=== PATIENT | male | born 1945 | race Caucasian/White ===

== ENCOUNTER → 2018-01-24 07:32 | Outpatient (CLI) | payer MEDICARE, BC, SELFPAY ==
[2018-01-24 09:13] LABS: ALT 42 U/L (12-78); AST 31 U/L (15-37); Albumin 3.9 g/dL (3.4-5.0); Alkaline Phosphatase 71 U/L (46-116); Anion Gap 5.2 mmol/L (3-11); BUN 23 mg/dL (7-18); Bilirubin, Total 0.6 mg/dL (0.2-1.0); CO2 30.8 mmol/L (21.0-32.0); CREATININE 1.02 mg/dL (0.70-1.30); Calcium 8.8 mg/dL (8.5-10.1); Chloride 105 mmol/L (98-107); Cholesterol 94 mg/dL (50-200); Glucose 122 mg/dL (70-100); HDL Cholesterol 27 mg/dL (40-60); LDL CHOLESTEROL 46 mg/dL (<100); Potassium 3.9 mmol/L (3.5-5.1); Sodium 141 mmol/L (136-145); Total Protein 7.1 g/dL (6.4-8.2); Triglyceride 195 mg/dL (30-150)
== END ==
PROVIDERS: PCP Family Medicine; Visit Provider Family Medicine
DX: E78.5 Hyperlipidemia, unspecified (principal)
CPT/HCPCS: 36415; 80053; 80061; 83721

== ENCOUNTER 2018-04-27 08:17 | Outpatient (CLI) | payer MEDICARE, BC, SELFPAY ==
[2018-04-27 10:03] LABS: C-Reactive Protein < 0.05 mg/dL (0.0-0.3)
[2018-04-28 10:28] LABS: Lyme Ab w Rflx to Lyme Confirm Negative
[2018-04-28 13:35] LABS: Rheumatoid Factor 15 IU/mL (<12.5)
[2018-04-28 19:18] LABS: Anaplasma phagocytophilum Negative (Negative); B. miyamotoi PCR Negative (Negative); Babesia divergens/MO-1 Negative (Negative); Babesia duncani Negative (Negative); Babesia microti Negative (Negative); Ehrlichia chaffeensis Negative (Negative); Ehrlichia ewingii/canis Negative (Negative); Ehrlichia muris eauclairensis Negative (Negative)
== END 2018-04-27 08:37 ==
PROVIDERS: PCP Family Medicine; Visit Provider Family Medicine
DX: M13.0 Polyarthritis, unspecified (principal)
CPT/HCPCS: 36415; 86140; 86431; 86618; 87798

== ENCOUNTER 2018-09-23 10:12 | Outpatient (CLI) | payer MEDICARE, BC, SELFPAY | END 2018-09-23 10:32 | PROVIDERS: PCP Family Medicine; Visit Provider Urology | DX: N40.2 Nodular prostate without lower urinary tract symptoms (principal) | CPT/HCPCS: 36415; 84153 ==

== ENCOUNTER → 2020-08-02 08:59 | Outpatient (BNVA) | payer MEDICARE, BC, SELFPAY | PROVIDERS: PCP Family Medicine; Referring Provider Family Medicine; Visit Provider Physical Therapy Assistant | DX: Z12.11 Encounter for screening for malignant neoplasm of colon (principal); Z86.010 Personal history of colon polyps ==

== ENCOUNTER 2020-08-12 10:04 | Day surgery (SDC) | payer MEDICARE, BC, SELFPAY ==
[2020-08-12 10:12] VITALS: BP 154/94; PULSE 77; RESP 18; TEMP 36.2; O2SAT 98
--- NOTE | 2020-08-12 10:32 | COLE_ITS ---
Date of service: 08/12/20 Time of Service: 11:33 Colonoscopy Report Date of procedure: 08/12/20 Pre-op diagnosis general: Hx of polyps Post-op diagnosis procedure note: same Procedure: Colonoscopy with polypectomy Surgeon: Rachael Galindo Anesthesia proc note operative: other (general/ASA 2/João Chan, NITA) Estimated blood loss (mL): 3 Pathology: other (Transverse polyp x3, Descending polyp, sigmoid polyp ) Complications: None Disposition: same day Indications: The patient is here for Colonoscopy pre-op. His last screening was in 2014 and was remarkable for tubular adenomatous polyp. He has no family history of colon cancer. He has had some bowel habit changes to include increased flatus and cramping abdominal pain which improves following having a BM. -Discussed colonoscopy bowel prep as well as the procedure. Discussed possible complications of the procedure to include bleeding, pain, perforation, missed small lesion/polyp, sore throat, aspiration and adverse reaction to the medications. Questions were answered to patient?s satisfaction. No guarantees were implied or given. Findings: 5 small polyps Procedure Description: After informed consent was obtained the patient was taken to the procedure room and placed in a left decubitous position. Monitors were applied and a time out was done. The patients name, date of , procedure, allergies to medications and metal in their body was reviewed. The patient was then sedated. Once sedated and comfortable a rectal exam was done. External exam was normal. Internal exam revealed a normal sphincter tone and no palpable masses. The prostate felt smooth and slightly enlarged. The scope was then introduced and retro-flexed. No internal hemorrhoids, polyps or masses were identified on retro-flexion. The scope was then advanced to the cecum without difficulty. The ileocecal vlave and appendiceal orifice were identified. The prep was good. The scope was then slowly retracted over 27 minutes back into the rectum. Polyps were removed with cold forceps in the Transverse colon x3, Descending colon x1 and sigmoid colon x1. There was no dive rticulosis noted. The scope was removed and the patient was woken up and taken back to Same day surgery in stable condition. The patient tolerated the procedure well and there were no immediate comp lications. Follow up: The patient should follow up in 3-5 years unless they develop changes in bowel habits or other new gastrointestinal complaints.
--- NOTE | 2020-08-12 10:33 | W.PM.DSUDISC ---
Discharge Plan Disposition Patient Disposition: HOME Condition: Good Discharge Details Reason For Visit: Hx of polyps Attending Provider: Rachael Galindo Primary Care Provider: Vicente Lozano Home Meds and New Rx's Prescriptions: Continued meclizine 12.5 mg tablet 25 mg PO BID PRN (Reason: motion sickness) Qty: 20 RF: 3 nitroglycerin 0.4 mg tablet, sublingual 0.4 mg Sublingual PRN Qty: 25 RF: 11 aspirin 81 MG tablet,delayed release (DR/EC) 81 mg PO DAILY RF: 0 Centrum Silver 1 EACH tablet 1 ea PO DAILY RF: 0 fexofenadine [Viry Allergy] 60 MG tablet 60 mg PO DAILY Qty: 30 RF: 2 cholecalciferol (vitamin D3) 1,000 unit (25 mcg) tablet 1,000 unit PO DAILY PRNRF: 0 lisinopril 10 mg tablet 10 mg PO DAILY Qty: 90 RF: 3 metoprolol succinate 25 mg tablet extended release 24 hr 25 mg PO DAILY Qty: 90 RF: 3 rosuvastatin [Crestor] 10 mg tablet 10 mg PO DAILY Qty: 90 RF: 3 Discontinued polyethylene glycol 3350 17 gram/dose powder 238 g PO ONCE Qty: 238 RF: 0 bisacodyl [Dulcolax (bisacodyl)] 5 mg tablet,delayed release (DR/EC) 5 mg PO ONCE Qty: 4 RF: 0 Discharge Instructions Additional Instructions: Findings: 5 small polyps Follow up: 3-5 years Please call if you develop: fevers >101.5 Nausea or Vomiting Abdominal pain that is not transient DAY SURGERY UNIT POST ENDOSCOPY INSTRUCTIONS 1. Because there will be medication in your system for the next 24 hours, you may feel a little sleepy. Your coordination will be affected. Therefore: a. Do not drive or operate dangerous equipment for 24 hours. b. Do not drink alcohol beverages for 24 hours (not even beer). c. Plan to go home and rest for the day. 2. Generally there are no restrictions on your activity after a day or so has gone by, but you may feel a bit fatigued for a few days. 3 After you arrive home you may have a light meal and return to a normal diet as you can tolerate it without feeling sick to your stomach. 4. After surgery, you may feel pain or discomfort. This should be only transient, but if it persists please contact your doctor. 5. If there are any questions regarding the findings of your procedure, please feel free to contact your doctor. 6. If you are unable to contact your doctor with a problem, contact the hospital at [phone]. 7. Continue all your regular medications unless directed otherwise. I understand the above instructions and have no questions. Signature of Patient or Responsible Adult Escort Date/Time Name of Responsible Adult Escort Signature of Nurse Date/Time Activity:: Activity as Tolerated Diet:: As Tolerated Discharge Orders Discharge Orders: Discharge Order (Routine); Ordered 08/12/20 Ordered By: Rachael Galindo
[2020-08-12] MEDS: Lactated Ringers 1,000 ML 80 ML IV (10:52)
--- NOTE | 2020-08-12 11:52 | BOWEL_PTH ---
PATIENT: Dayton Mcclure LOC: [facility] U#:[id number] AGE/SX: 75/M ROOM: RE08/12/[address]: Rachael Galindo MD : 1945 BED: DIS: 08/12/2020 SPEC #: [id number] RECD: 08/12/20 16:57 STATUS: [place] REQ #: [id number] DOMINIQUE: 08/12/20 11:[address]: Rachael Galindo DEPT: Surgical Specimen RECD BY: Radha Sapp ENTERED: 08/12/20 16:58 SP TYPE: Bowel OTHR DR: Vicente Lozano DO Tissues: 1 - BIOPSY BOWEL 2 - BIOPSY BOWEL 3 - BIOPSY BOWEL Procedures: GROSS AND MICRO LEVEL 4 Comments: [id number]
[2020-08-12 12:47] VITALS: BP 118/80; PULSE 79; RESP 16; TEMP 36.1; O2SAT 94
== END 2020-08-12 13:10 | disposition home or self-care (01) ==
PROVIDERS: PCP Family Medicine; Visit Provider Surgery
PROC: 0DJD8ZZ Inspection of Lower Intestinal Tract, Via Natural or Artificial Opening Endoscopic (ICD-10-PCS; CPT 45378; principal; 2020-08-12 11:15)
DX: Z12.11 Encounter for screening for malignant neoplasm of colon (principal); Z86.010 Personal history of colon polyps; D12.3 Benign neoplasm of transverse colon; D12.4 Benign neoplasm of descending colon
CPT/HCPCS: 45380; 88305; J2001; J2704

== ENCOUNTER 2021-03-19 10:58 | Outpatient (REF) | payer MEDICARE, BC, SELFPAY ==
[2021-03-21 14:50] LABS: COVID-19 RT-PCR UVMMC Result Negative (Negative)
== END 2021-03-19 10:59 | disposition home or self-care (01) ==
LOC: LBN 10:58
PROVIDERS: PCP Family Medicine; Visit Provider Nurse Practitioner Family
DX: J02.9 Acute pharyngitis, unspecified (principal); Z20.822 Contact with and (suspected) exposure to COVID-19
CPT/HCPCS: U0003; 87070

== ENCOUNTER 2021-08-18 03:26 | Outpatient (CLI) | payer MEDICARE, BC, SELFPAY ==
[2021-08-18 08:58] LABS: ALT 36 U/L (16-63); AST 26 U/L (15-37); Albumin 4.1 g/dL (3.4-5.0); Alkaline Phosphatase 63 U/L (46-116); Anion Gap 5.2 mmol/L (3-11); BUN 22 mg/dL (7-18); Bilirubin, Total 0.8 mg/dL (0.2-1.0); CO2 30.8 mmol/L (21.0-32.0); CREATININE 0.9 mg/dL (0.70-1.30); Calcium 8.7 mg/dL (8.5-10.1); Calculated LDL 43 mg/dL (<100); Chloride 105 mmol/L (98-107); Cholesterol 99 mg/dL (<200); Glucose 100 mg/dL (74-106); HDL Cholesterol 34 mg/dL (40-60); Potassium 3.9 mmol/L (3.5-5.1); Sodium 141 mmol/L (136-145); Total Protein 7.1 g/dL (6.4-8.2); Triglyceride 110 mg/dL (<150)
[2021-08-19 10:29] LABS: Hepatitis C Ab w Rflx HCV PCR Negative (Negative)
[2021-08-19 10:49] LABS: HIV-1/2 Ag & Ab Screen Negative (Negative)
== END 2021-08-18 03:27 | disposition home or self-care (01) ==
LOC: LBO 03:26
PROVIDERS: PCP Family Medicine; Visit Provider Family Medicine
DX: E11.9 Type 2 diabetes mellitus without complications (principal); I25.10 Atherosclerotic heart disease of native coronary artery without angina pectoris; Z11.59 Encounter for screening for other viral diseases; Z11.4 Encounter for screening for human immunodeficiency virus [HIV]
CPT/HCPCS: 36415; 80053; 80061; 86803; 87389

== ENCOUNTER → 2022-01-22 10:03 | Outpatient (BNVA) | payer MEDICARE, BC, SELFPAY | PROVIDERS: PCP Family Medicine; Referring Provider Family Medicine; Visit Provider Nurse Practitioner Adult Health | DX: G56.02 Carpal tunnel syndrome, left upper limb (principal) | CPT/HCPCS: 95908; 99203; 99213 ==

== ENCOUNTER → 2022-03-23 07:56 | Outpatient (BNVA) | payer MEDICARE, BC, SELFPAY | PROVIDERS: PCP Family Medicine; Referring Provider Family Medicine; Visit Provider Student in an Organized Health Care Education/Training Program | DX: E11.9 Type 2 diabetes mellitus without complications (principal); G56.02 Carpal tunnel syndrome, left upper limb | CPT/HCPCS: 99213 ==

== ENCOUNTER 2022-05-13 10:39 | Day surgery (SDC) | payer MEDICARE, BC, SELFPAY ==
[2022-05-13 11:09] VITALS: BP 148/101; PULSE 77; RESP 16; TEMP 36.5; O2SAT 96
[2022-05-13] MEDS: Lactated Ringers 1,000 ML 80 ML IV (11:52)
--- NOTE | 2022-05-13 11:54 | W.PREOPHP ---
Assessment and Plan Assessment and plan (1) Carpal tunnel syndrome on left: Status: Acute Assessment and plan: Left ECTR Details of surgery were discussed with patient as well as risks and pertinent anatomy. All questions were answered. History of Present Illness History of Present Illness Chief Complaint: L hand pain/numbness Narrative: Dayton is a 76-year-old male who comes in today for a left ECTR. He has had left hand numbness and tingling is ongoing for over a year.? Patient reports intermittent numbness and tingling that affects his thumb, index, middle and ring finger.? Symptoms are aggravated most significantly at night, with driving as well as with holding his arm in one position such as when holding his phone.? Over the past several months patient has been wearing a nighttime splint which is helped significantly with nighttime symptoms. He also describes intermittent sharp wrist discomfort that is aggravated with forced motion such as when completing repeated work. Although nighttime splinting has helped, he continues to have symptoms, therefore Dr. Valdez offers an ECTR for the left wrist. He is anxious to proceed. Pertinent Surgical Information Per previous orthopaedic note: Dayton has a past history of DM with his last A1c was 02/26/2022 which was 5.7.? Patient also had cardiac stents placed many years ago and denies any recent chest pain or shortness of breath; patient is extremely active including hiking frequently for hunting without cardiac respiratory symptoms. Review of Systems Constitutional Constitutional: Denies fever(s) ENT Ears, Nose, Mouth, and Throat: Denies dizziness and Denies sore throat Cardiovascular Cardiovascular: Denies chest pain, Denies palpitations and Denies dyspnea Respiratory Respiratory: Denies cough and Denies dyspnea Gastrointestinal Gastrointestinal: Denies abdominal pain, Denies melena, Denies hematochezia, Denies diarrhea, Denies nausea and Denies vomiting Genitourinary Genitourinary: Denies hematuria and Denies dysuria Neurologic Neurologic: Denies dizziness Endocrine Endocrine: Denies palpitations PFSH All Active Problems Osteoarthritis (Chronic) Carpal tunnel syndrome on left (Acute) Spider veins (Acute) Serrated adenoma of colon (Acute ~07/2020) Tubulovillous adenoma (Acute ~07/2020) x3 Colon cancer screening (Acute) Benign positional vertigo (Acute) Right rotator cuff tendinitis (Acute) Shoulder arthritis (Acute) Diabetes mellitus type 2, diet-controlled (Acute) Anterior subluxation or dislocation of shoulder (Acute 06/11/13) Injury of Achilles tendon (Acute 09/14/14) Counseling on health promotion and disease prevention (Acute) Prediabetes (Chronic) Fasting blood sugars have remained borderline for a few years. No specific interventions needed at this time, other than counseling to avoid added sugar. Varicocele (Chronic) progress note date 04/01/17. Left, Asymptomatic Urinary hesitancy (Chronic) progress note date 04/01/17. Mild lower urinary tract symptoms likely related to BPH. Thrombocytopenia (Chronic 05/21/16) 116K in 2012; 117K 2015; ? due to Atorvastatin, persists despite change to Rosuvastatin Skin lesions (Acute 07/26/14) hyperkeratotic lower back: consider excision due to irritation with clothing 08/14/19 f/u with Dr Paul Seasonal and perennial allergic rhinitis (Acute 05/03/15) Renal cyst (Acute) progress note date 04/01/17. Large Left small parapelvic right asymptomatic Prostatic calculi (Acute 09/30/17) Nocturia (Acute 09/30/17) Other and unspecified hyperlipidemia (Acute 08/20/11) Erectile dysfunction (Acute) progress note date 04/01/17. Esophageal reflux (Chronic 08/20/11) Dysmetabolic syndrome X (Chronic 08/20/11) Chronic rhinitis (Chronic 01/02/13) Reminded that he has a prescription for fexofenadine. If he needs a refill, he will call. Coronary atherosclerosis of [place] coronary vessel (Acute 03/31/05) On aspirin and rosuvastatin and has excellent cholesterol control at present. Benign localized prostatic hyperplasia with lower urinary tract symptoms (LUTS) (Acute) progress note date 04/01/17. nocturia Benign hypertension (Chronic 05/31/04) Well controlled on metoprolol alone. Atherosclerosis of [place] coronary artery of [place] heart without angina pectoris (Acute 03/31/05) 2 DE STENTS 2004 ( LAD & diagnl); ETT 05/2011 borderline inf EKG no sx, ex 12:40 to 12.9 METs; ETT nl 01/2016 Actinic keratosis (Acute 08/20/11) Abnormal fasting glucose (Acute 02/23/17) HbA1c 6.0 01/2017 Surgical History Colonoscopy - IV Sedation (02/11/15) DR. GINO YUSUF H/O: vasectomy S/P angioplasty with stent (~2004) S/P excision of ganglion cyst right wrist Family History Mother , high bp at age 94. Essential hypertension Father , [place], pipe smoker at age 58. Myocardial infarction Brother Age: 81 Diabetes Essential hypertension History of heart artery stent Tachycardia ablation Social History Smoking/Tobacco Use Status: Former Tobacco Use Quit Date: 05/31/76 Pack-years: 20 Tobacco: How many years used: 15 Smoking risk assessment performed?: Yes Alcohol Intake: current Alcohol Intake frequency: a few times a month Drug use: Never Substance use type: does not use Caregiver/Support person: No Household members: spouse current occupation: [employer] 3day/wk Current gender identity: male What is your relationship status?: Panel score (0-1 are the most socially isolated patients): 1 Duration: 15-30 minutes/day Frequency: 3-4 times per week Seatbelt use: always Drive intox or ride w/intox corrugated fastener driver: No Water heater temp set <120 deg: Yes Working smoke detector in home: Yes Fire extinguisher in home: Yes Carbon monox detector in home: Yes Firearms in home: Yes Firearms unloaded and locked: Yes Do you feel safe at home: Yes Do you feel safe in your relationship?: Yes Meds Allergies and Home Medications Allergies Allergy/AdvReac Type Severity Reaction Status Date / Time No Known Allergies Allergy Verified 05/13/22 11:12 Home Medications Medication Instructions Recorded Confirmed Type aspirin 81 mg tablet,delayed 81 mg PO DAILY 09/20/12 05/13/22 History release oofpywpn-myq-pdgds acid 0.4 1 ea PO DAILY 11/26/14 05/13/22 History mg-lycopene 300 mcg-lutein 250 mcg tablet (Centrum Silver) cholecalciferol (vitamin D3) 25 1,000 unit PO DAILY PRN 03/28/19 05/13/22 History mcg (1,000 unit) tablet nitroglycerin 0.4 mg sublingual 0.4 mg sublingual PRN #25 tabs 05/10/20 05/13/22 Rx tablet naproxen sodium 220 mg tablet 220 mg PO PRN 04/30/21 05/13/22 History (Aleve) lisinopril 10 mg tablet 10 mg PO DAILY #90 tabs 05/20/21 05/13/22 Rx rosuvastatin 10 mg tablet (Crestor) 10 mg PO DAILY #90 tab-caps 05/20/21 05/13/22 Rx metoprolol succinate 25 mg 25 mg PO DAILY #90 tabs 11/18/21 05/13/22 Rx tablet,extended release 24 hr Exam Const General: cooperative and no acute distress Orientation: alert and awake [facility] Head: normocephalic and atraumatic Eyes Conjunctivae: conjunctivae normal Sclera: sclerae normal Resp Effort & Inspection: normal respiratory effort Auscultation: clear to auscultation bilaterally and no wheezes Cardio Rate: regular rate Rhythm: regular rhythm Heart Sounds: S1 normal, S2 normal and no murmurs Results Last Vital Signs Temp 97.7 F 05/13/22 11:09 Pulse 77 05/13/22 11:09 Resp 16 05/13/22 11:09 BP 148/101 H 05/13/22 11:09 Pulse Ox 96 05/13/22 11:09
--- NOTE | 2022-05-13 12:00 | W.ANESPRE ---
General Info Date of Service Date Performed: 05/13/22 Height: 6 ft Weight: 97.5 kg Body Mass Index (BMI): 29.1 Surgical Procedure: Operation Date: 05/13/22 13:55 Proposed Procedure Side Surgeon p Wrist ECTR Left Preston Valdez MD Meds Allergies and Home Medications Allergies Allergy/AdvReac Type Severity Reaction Status Date / Time No Known Allergies Allergy Verified 05/13/22 11:12 Home Medication Medication Instructions Recorded aspirin 81 mg tablet,delayed 81 mg PO DAILY 09/20/12 release mfczfvyk-axm-arhzx acid 0.4 1 ea PO DAILY 11/26/14 mg-lycopene 300 mcg-lutein 250 mcg tablet (Centrum Silver) cholecalciferol (vitamin D3) 25 1,000 unit PO DAILY PRN 03/28/19 mcg (1,000 unit) tablet nitroglycerin 0.4 mg sublingual 0.4 mg sublingual PRN #25 tabs 05/10/20 tablet lisinopril 10 mg tablet 10 mg PO DAILY #90 tabs 05/20/21 rosuvastatin 10 mg tablet (Crestor) 10 mg PO DAILY #90 tab-caps 05/20/21 metoprolol succinate 25 mg 25 mg PO DAILY #90 tabs 11/18/21 tablet,extended release 24 hr acetaminophen 500 mg tablet 1,000 mg PO TID #90 tabs 05/13/22 hydrocodone 5 mg-acetaminophen 325 1 tab PO Q6H PRN pain #6 tabs 05/13/22 mg tablet ibuprofen 600 mg tablet 600 mg PO TID PRN pain #90 tabs 05/13/22 Current Visit Medications: Current Medications Generic Name Dose Route Start Last Admin Trade Name Elaidoq PRN Reason Stop Dose Admin Ringer's Solution 1,000 mls @ 80 mls/hr 05/13/22 06:00 05/13/22 11:52 IV 06/11/22 23:59 80 mls/hr INFUSION MARI Administration Cefazolin Sodium/Dextrose 2 gm in 50 mls @ 100 mls/hr 05/13/22 06:00 Ancef Duplex IVPB 06/11/22 23:59 PREOP MARI IV Miscellaneous Supplies 1 each 05/13/22 06:00 Iv Access IV 06/11/22 23:59 DIRECTED MARI Sodium Chloride 0 ml 05/13/22 06:00 Normal Saline Flush 10 Ml Syr IV 06/11/22 23:59 PRN PRN Sodium Chloride 0 ml 05/13/22 06:00 Normal Saline 10 Ml Vial IJ 06/11/22 23:59 DIRECTED PRN Sterile Water 0 ml 05/13/22 06:00 Water,Injection,Sterile 10 Ml Vial IJ 06/11/22 23:59 DIRECTED PRN PFSH Active Problems Active Problems: Problem Status Onset Code Osteoarthritis M19.90 Carpal tunnel syndrome on left G56.02 Spider veins I78.1 Serrated adenoma of colon ~07/2020 D12.6 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 Colon cancer screening Z12.11 Benign positional vertigo H81.10 Right rotator cuff tendinitis M75.81 Shoulder arthritis M19.019 Diabetes mellitus type 2, diet-controlled E11.9 Anterior subluxation or dislocation of shoulder 06/11/13 Injury of Achilles tendon 09/14/14 S86.009A Counseling on health promotion and disease prevention Z71.89 Prediabetes R73.03 Varicocele I86.1 Urinary hesitancy R39.11 Thrombocytopenia 05/21/16 D69.6 Skin lesions 07/26/14 L98.9 Seasonal and perennial allergic rhinitis 05/03/15 J30.89, J30.2 Renal cyst N28.1 Prostatic calculi 09/30/17 N42.0 Nocturia 09/30/17 R35.1 Other and unspecified hyperlipidemia 08/20/11 E78.5 Erectile dysfunction N52.9 Esophageal reflux 08/20/11 K21.9 Dysmetabolic syndrome X 08/20/11 E88.81 Chronic rhinitis 01/02/13 J31.0 Coronary atherosclerosis of [place] coronary vessel 03/31/05 I25.10 Benign localized prostatic hyperplasia with lower urinary tract symptoms (LUTS) N40.1 Benign hypertension 05/31/04 I10 Atherosclerosis of [place] coronary artery of [place] heart without angina pectoris 03/31/05 I25.10 Actinic keratosis 08/20/11 L57.0 Abnormal fasting glucose 02/23/17 R73.01 Medical History Medical History Comments:: 05/13/22 - pt reports chrnic post nasal drip. 2 stents from angioplasty. Surgical History Surgical History Colonoscopy - IV Sedation (02/11/15) DR. GINO YUSUF H/O: vasectomy S/P angioplasty with stent (~2004) S/P excision of ganglion cyst right wrist Tobacco Smoking/Tobacco Use Status: Former Tobacco Use Alcohol Alcohol Intake: current Alcohol intake frequency: a few times a month Substance Use Substance use: Never Substance use type: does not use Vital Signs and Lab Results Vital Signs Most Recent Vital Signs in EMR: Most Recent Vital Signs Temp Pulse Resp BP Pulse Ox 36.5 C 77 16 148/101 H 96 05/13/22 11:09 05/13/22 11:09 05/13/22 11:09 05/13/22 11:09 05/13/22 11:09 Point of Care Results Point of Care Results: Finger Stick Blood Glucose 116 05/13/22 11:19 Lab Results Blood Type / Crossmatch: No Data to Display Complete Blood Count: No Data to Display Complete Metabolic Panel: No Data to Display Liver Function Panel: No Data to Display Coagulation Panel: No Data to Display Cardiac Panel: No Data to Display Arterial Blood Gas: No Data to Display Venous Blood Gas: No Data to Display Pancreas Panel: No Data to Display Thyroid Panel: No Data to Display Infectious Disease: No Data to Display Blood Cultures: No Data to Display Toxicology Panel: No Data to Display Imaging and Studies Imaging and Studies Study information below may be from another EMR and interpreted by another provider. Please see original notes in EMR for more complete details. EKG Summary: EKG PATIENT NAME: BECCA MORAN #: [id number] ORDERING PROVIDER: Vicente Lozano DOACCOUNT #: [id number] PRIMARY CARE PROVIDER:VICENTE LOZANO DO DATE/TIME OF SERVICE: 01/29/20 1050 : 1945PERFORMING LOCATION: [facility] APPROVED REPORT Exam: Resting ECG Patient Location: O HR:71 bpm ECG Measurements Heart Rate 71 AXIS DC 157 P 32 QRSd 106 QRS 43 QT 382 T18 QTc 415 Conclusion Sinus rhythm...normal P axis, V-rate 60- 99 Normal Electrocardiogram Stress Test Summary: STRESS TEST PATIENT NAME: BECCA MORAN #: [id number] ADMITTING PROVIDER: ROSE VIDAL, PREETHACCOUNT #: [id number] PRIMARY CARE PROVIDER:VICENTE AGUIAR M.D.DATE OF SERVICE: 01/30/16 : 1945 *[facility]* *[facility]* [address] [place] [address] Stress Electrocardiography Ganga protocol Date of study: 01/30/2016 (Report amended ) *PATIENT PRESENTATION* Height: 180.3cm ((71in) ) Blood Pressure: Weight: 104.5kg ((230lb) ) BSA: 2.32m^2 Ordering physician: Benjamin Mccann MD Impressions: Normal study after maximal exercise. Recommendations: Continue cardiac secondary prevention. Indication: I25.10. History: PATIENT PRESENTS TODAY FOR TREADMILL STRESS TEST AFTER VISITING HIS PCP DR. AGUIAR. PT REPORTS PREVIOUS CORONARY ARTERY DISEASE AND HAS NOT HAD A STRESS TEST IN MANY YEARS. PAST MEDICAL HISTORY: HYPERTENSION, MYALGIA, ATHEROSCLEROSIS, HX STENTS X2 IN 2004. FAMILY HX: FATHER AT AGE 58 OF DC. BROTHER HX STENT PLACEMENT. SMOKING STATUS: FORMER SMOKER EXERCISE ROUTINE: 30 MINS/ 5-7 DAYS A WEEK. Risk factors: Hypertension. Obesity. Dyslipidemia. Cholesterol: 100mg/dl. HDL: 29mg/dl. LDL: 47mg/dl. Triglycerides: 281mg/dl. Peripheral vascular disease. ALLERGIES: NKDA MEDICATIONS: RANITIDINE HCL 150 MG BID PRN, NITROGLYCERIN 0.4MG SL PRN, MULTIVITAMIN DAILY, MECLIZINE HCL 25MG BID, LISINOPRIL 10MG DAILY, FLUTICASONE NS PRN, FEXOFENADINE HCL BID PRN, VITAMIN D3 1,000 UNITS DAILY, ATORVASTATIN 20MG DAILY, ATENOLOL 50MG DAILY, ASPIRIN 81MG DAILY. Protocol: Ganga protocol. Baseline ECG: SINUS RHYTHM 89 BPM. SINUS RHYTHM Stress protocol: + +---+ + !Stage !HR !BP (mmHg) ! + +---+ + !Baseline supine !89 !146/90 (109) ! + +---+ + !Baseline standing !103!130/90 (103) ! + +---+ + !Stage I; 1.7mph, 10degrees; 3 min !122!140/100 (113)! + +---+ + !Stage II; 2.5mph, 12degrees; 3 min !121!156/90 (112) ! + +---+ + !Stage III; 3.4mph, 14degrees; 3 min!148!160/90 (113) ! + +---+ + !Peak stress !169! ! + +---+ + !Immediate post stress !160!170/80 (110) ! + +---+ + !Recovery; 1 min !111!210/80 (123) ! + +---+ + !Recovery; 3 min !94 !160/74 (103) ! + +---+ + !Recovery; 6 min !102!146/88 (107) ! + +---+ + !Recovery; 9 min !101!134/84 (101) ! + +---+ + * Stress results: [id number] The rate-pressure product for the peak heart rate and blood pressure was 47070zq Hg/min. Stress ECG: TREADMILL STRESS TEST ENDED DUE TO PATIENT FATIGUE AT 10 MINUTES AND 36 SECONDS. MAX HEART RATE: 169 PERCENT OF TARGET: 111% NORMAL BLOOD PRESSURE AND HEART RATE RESPONSE NOTED. 1 PVC NOTED AT 2 MINUTES 1 SECOND OF RECOVERY. APPROXIMATE METS ACHIEVED: 13.[address] DEPRESSION IN V4-V6 TOWARDS THE END OF STRESS TEST. FUNCTIONAL CAPACITY: ABOVE AVERAGE. Study data: Dr. Kirk supervised and was readily available during the procedure. This study was interpreted by [facility]. Study status: Routine. Consent: The risks, benefits, and alternatives to the procedure were explained to the patient and informed consent was obtained. Procedure: Initial setup. A baseline ECG was recorded. Surface ECG leads and manual cuff blood pressure measurements were monitored. Heart sounds: Normal. Lung sounds: Normal. Treadmill exercise testing was performed using the Ganga protocol. Study completion: The patient tolerated the procedure well and was discharged from the lab. Discharge: The patient left the laboratory in stable condition. Birthdate: Patient birthdate: 1945. Sex: Gender: male. Study date: Study date: 01/30/2016. Study time: 10:00 AM. Echocardiogram Summary: Patient Name: BECCA MORAN #: [id number]: DI Ordering Provider: Vicente Lozano DOAccount #: [id number]: REG CLI Primary Care Provider: Vicente Lozano of Exam: 09/03/17ex: M : 1945ge: 72 Exam(s) [id number] US:Echocardiogram Heart *[facility]* *[facility]* [address] [place] [address] Date of study: 09/03/2017 Transthoracic Echocardiography M-mode, complete 2D, complete spectral Doppler, and color Doppler *STUDY CONCLUSIONS* Summary: 1. Left ventricle: The cavity size was normal. Wall thickness was at the upper limits of normal. Systolic function was normal. The estimated ejection fraction was 55-60%. Wall motion was normal; there were no regional wall motion abnormalities. 2. Right ventricle: The cavity size was at the upper limits of normal. Systolic function was normal. 3. Mitral valve: Mildly thickened leaflets. Redundant mitral chordae tendinea prolapsing into LVOT. No significant LVOT obstruction/ gradient. 4. Aortic root: The aortic root was mildly dilated (40 mm). 5. Ascending aorta: The ascending aorta was mildly dilated (43 mm). 6. Inferior vena cava: The vessel was patent and normal in size. The respirophasic diameter changes were in the normal range (greater than or equal to 50%), consistent with normal central venous pressure. Carotid Artery Summary:: Patient Name: BECCA MORAN #: [id number]: DI Ordering Provider: Vicente Lozano DOAccount #: [id number]: REG CLI Primary Care Provider: Vicente Lozano of Exam: 09/01/17ex: M : 1945ge: 72 Exam(s) [id number] US:Carotid SYMPTOMS/DIAGNOSIS: PRESYNCOPE, R55 CAROTID ULTRASOUND: There is a mild amount of intimal thickening in the common carotid arteries bilaterally. A mild amount of calcific plaque is seen in the common carotid bulbs. The velocity measurements are within the normal range. There is no visible stenosis. The vertebral arteries show antegrade flow. IMPRESSION: No significant interval carotid artery stenosis. Mild amount of plaque. Anesthesia Assessment and Plan Anesthesia History Personal History: No History of Anesthesia Complications Family History: No Family History of Anesthesia Complications Exercise Tolerance Exercise Tolerance: Metabolic Equivalents>4 Pertinent Negatives Pertinent Negatives: No Symptoms of GERD, No Major Cardiovascular Symptoms or Complaints, No Major Pulmonary Symptoms or Complaints and No History of CVA/TIA Cardiac & Pulmonary Exam Cardiac Exam: Normal S1/S2 Heart Sounds Pulmonary Exam: Clear Bilateral Breath Sounds Implantable Cardiac Device Does patient have a Pacemaker or an ICD?: No Airway Exam Known Difficult Airway: No Mallampati Class: 2 Mouth Opening: Normal (> 3cm) Thyromental Distance: Greater than 3 cm Neck Range of Motion: Full ROM Neck Circumference: Normal Teeth Condition: Normal Dentition ASA Classification ASA Score: ASA 2 Emergency Case?: No NPO Status NPO Status: NPO Clears >2 hours, Solids >8 hours Anesthesia Plan Resuscitation Status: Full Code Anesthesia Technique: General Anesthesia Airway Planned: Natural Airway Monitors Used: Standard Monitors
--- NOTE | 2022-05-13 12:17 | W.PM.DSUDISC ---
Date of service: 05/13/22 Time of Service: 12:21 Discharge Plan Disposition Patient Disposition: Home Condition: Good Discharge Details Reason For Visit: L ECTR Attending Provider: Preston Valdez Primary Care Provider: Vicente Lozano Home Meds and New Rx's Prescriptions: New acetaminophen 500 mg tablet 1,000 mg PO TID Qty: 90 0RF hydrocodone-acetaminophen 5-325 mg tablet 1 tab PO Q6H PRN (Reason: pain) Qty: 6 0RF ibuprofen 600 mg tablet 600 mg PO TID PRN (Reason: pain) Qty: 90 0RF Continued nitroglycerin 0.4 mg tablet, sublingual 0.4 mg Sublingual PRN Qty: 25 11RF Rx Instructions: NEEDED FOR CHEST PRESSURE, MAY PREPAT 3 TIMES AND GO TO EMERGENCY IF NEEDED aspirin 81 MG tablet,delayed release (DR/EC) 81 mg PO DAILY Centrum Silver 1 EACH tablet 1 ea PO DAILY cholecalciferol (vitamin D3) 1,000 unit (25 mcg) tablet 1,000 unit PO DAILY PRN Label Comments: lisinopril 10 mg tablet 10 mg PO DAILY Qty: 90 3RF rosuvastatin [Crestor] 10 mg tablet 10 mg PO DAILY Qty: 90 3RF Rx Instructions: reduce risk of cardiovascular events following coronary disease metoprolol succinate 25 mg tablet extended release 24 hr 25 mg PO DAILY Qty: 90 3RF Discontinued naproxen sodium [Aleve] 220 mg tablet 220 mg PO PRN Discharge Instructions Stand Alone Forms: Courtney Benavides Tunnel Release Referrals: Preston Valdez MD [ [facility] STAFF PHYSICIAN] - Activity:: Activity as Tolerated Remove Dressings/Wound Care:: 48 hours Shower/Bathe:: 48 hours Diet:: As Tolerated Discharge Orders Discharge Orders: Discharge Order (Routine); Ordered 05/13/22 Ordered By: Benjamin Soto DS: Diagnosis Discharge Diagnosis (1) Carpal tunnel syndrome on left: Status: Acute
[2022-05-13 12:38] VITALS: BMI 29.1
[2022-05-13] MEDS: ceFAZolin 2 GM/50 ML BAG IVPB (12:47)
[2022-05-13] MEDS: Lidocaine 1% Pres-Free W/EPI 1/200,000 10 ML VIAL (13:01)
[2022-05-13 13:08] VITALS: BP 131/87; PULSE 84; TEMP 36; O2SAT 94
--- NOTE | 2022-05-13 13:18 | W.ANESPOSTOP ---
Postoperative Evaluation Date, Time and Location Date Performed: 05/13/22 Time Performed: 13:18 Patient Location: Day Surgery Unit Vital Signs Most Recent Imported Vital Signs: Most Recent Vital Signs Temp Pulse Resp BP Pulse Ox 36 C L 84 16 131/87 94 05/13/22 13:08 05/13/22 13:08 05/13/22 11:09 05/13/22 13:08 05/13/22 13:08 Pain Score Most Recent Pain Score: Most Recent Pain Score Pain Level 0 05/13/22 13:08 Assessment Mental Status: Awake (Alert & Oriented to Patient Baseline) Airway and Respiratory Function: Patent airway with normal (patient baseline) respiratory exam Cardiovascular Function: Hemodynamically Stable Hydration Status: Adequately Hydrated Nausea & Vomiting: No Nausea or Vomiting Pain: Pt. Denies Any Pain Peripheral Nerve Block: Patient did not receive a nerve block
[2022-05-13 13:38] VITALS: BP 124/85; PULSE 80; RESP 16; TEMP 36.1; O2SAT 95
--- NOTE | 2022-05-13 15:02 | W.PM.OP ---
Date of service: 05/13/22 Time of Service: 13:15 Operative Note Operative Note DATE OF PROCEDURE: 05/13/22 PRE-OP DIAGNOSIS: Left Carpal Tunnel Syndrome POST-OP DIAGNOSIS: same PROCEDURE: Left Endoscopic Carpal Tunnel Release SURGEON: Preston Valdez ANESTHESIA TYPE: General:No Airway Refer to Anesthesia Record ESTIMATED BLOOD LOSS: 0 PATHOLOGY: none sent TOURNIQUET TIME: 5 COMPLICATIONS: None Patient was transported to: same day Patient's condition: stable Indications: I have seen Dayton in clinic for symptoms of carpal tunnel syndrome. The numbness, tingling, and pain limited function. Clinical exam findings with nerve conduction tests confirmed the diagnosis of carpal tunnel syndrome. Nonoperative measures such as bracing, time, activity modifications had been tried but disability and pain persisted. I discussed carpal tunnel release with the patient. I reviewed the risks of the procedure to include, but not limited to, bleeding, infection, pain, stiffness, incomplete release, damage to nerves or vessels, persistent numbness, recurrence. Despite these risks, the patient elected to proceed. Findings: There was tightened carpal tunnel. This was dilated and released successfully with the endoscopic with increased space within the tunnel. The antebrachial fascia was released proximally freeing the median nerve at the wrist. Procedure Description: Dayton was greeted in the preoperative holding area where the correct side was identified and marked. The consent was reviewed with the patient and signed. The history and physical was updated. All questions were answered. He was taken back to the operating room. The patient was placed into the supine position on the operating room table with the left arm on an arm board. A nonsterile tourniquet was placed high onto the arm. All bony prominences were well padded. Prophylactic antibiotics in the form of Cefazolin were administered. The left arm was then prepped with Chloraprep and draped in a standard fashion with stockinette and extremity drape. A timeout to confirm correct identity, side and site, procedure, allergies, anesthesia, and medical concerns was performed. The surgical site was marked in the volar wrist creases in line with the radial border of the fourth ray. This area was anesthetized with approximately 6cc of 1% Lidocaine. The limb was then exsanguinated with an Esmarch. The skin was incised with a 15 blade, approximately 1cm. The skin only was cut and the deeper tissue was dissected bluntly with a tenotomy scissor, avoiding passing nerve and venous structures. The fascia was penetrated and opened bluntly. A two-prong skin hook was placed under this proximal fascial edge. A series of hamate finders were used to identify and dilate the carpal tunnel. Synovial elevator was used to free synovial attachments to the underside of the transverse carpal ligament. My thumb was kept in the palm to eva the distal extent of the carpal tunnel and correctly position the hand. The Microaire endoscope was inserted without difficulty and without resistance. Excellent visualization showed horizontally running fibers of the transverse carpal ligament (TCL). The distal extent of the TCL was visualized and the end of the scope palpated with the thumb. The blade was elevated and withdrawn from distal to proximal. The TCL was split into two flaps. The endoscope was reinserted to confirm complete release and any remnant ligament was incised. The scope was withdrawn and the proximal aspect of the carpal tunnel was grossly inspected and appeared release with the median nerve visible. The antebrachial fascia at the level of the wrist was then freed from the overlying skin and then the underlying median nerve with blunt dissection. This was transected longitudinally for about 3cm proximal to the wrist incision. The wound was then irrigated with easy flow of irrigant distally and proximally. The incision was closed with a single 4-0 Nylon suture. The wound was dressed with Xeroform, Gauze, Kerlix and Sameer. The tourniquet was deflated with the initial dressing and held with some pressure. Blood flow returned easily to all digits with capillary refill less than 2 seconds. The patient tolerated the procedure well and was returned to the Same Day Surgery area in a stable condition suffering no known complication.
== END 2022-05-13 14:07 | disposition home or self-care (01) ==
PROVIDERS: PCP Family Medicine; Visit Provider Student in an Organized Health Care Education/Training Program
PROC: 01N54ZZ Release Median Nerve, Percutaneous Endoscopic Approach (ICD-10-PCS; CPT 29848; principal; 2022-05-13 13:45)
DX: G56.02 Carpal tunnel syndrome, left upper limb (principal); E11.9 Type 2 diabetes mellitus without complications
CPT/HCPCS: 29848; J0690; J1100; J2405

== ENCOUNTER → 2022-05-21 08:19 | Outpatient (BNVA) | payer MEDICARE, BC, SELFPAY | PROVIDERS: PCP Family Medicine; Referring Provider Family Medicine; Visit Provider Student in an Organized Health Care Education/Training Program | DX: Z47.89 Encounter for other orthopedic aftercare (principal); G56.02 Carpal tunnel syndrome, left upper limb ==

== ENCOUNTER 2023-09-23 05:30 | Outpatient (CLI) | payer MEDICARE, BC, SELFPAY ==
[2023-09-23 08:07] LABS: Hemoglobin A1C 6.1 % (<5.7)
[2023-09-23 08:29] LABS: ALT 48 U/L (16-63); AST 29 U/L (15-37); Albumin 4.1 g/dL (3.4-5.0); Alkaline Phosphatase 66 U/L (46-116); Anion Gap 7.5 mmol/L (3-11); BUN 23 mg/dL (7-18); Bilirubin, Total 0.9 mg/dL (0.2-1.0); CO2 31.5 mmol/L (21.0-32.0); Calcium 9.1 mg/dL (8.5-10.1); Chloride 105 mmol/L (98-107); Estimated GFR 77.52 (mL/min/1.73m2); Glucose 130 mg/dL (74-106); Potassium 3.9 mmol/L (3.5-5.1); Sodium 144 mmol/L (136-145); Total Protein 7.5 g/dL (6.4-8.2)
[2023-09-23 19:58] LABS: Calculated LDL 32 mg/dL (<100); Cholesterol 100 mg/dL (<200); HDL Cholesterol 38 mg/dL (40-60); Triglyceride 153 mg/dL (<150)
== END 2023-09-23 05:31 | disposition home or self-care (01) ==
LOC: LBO 05:30
PROVIDERS: PCP Family Medicine; Referring Provider Family Medicine; Visit Provider Family Medicine
DX: E11.9 Type 2 diabetes mellitus without complications (principal)
CPT/HCPCS: 36415; 80053; 80061; 83036

== ENCOUNTER → 2023-11-23 11:10 | Outpatient (BNVA) | payer MEDICARE, BC, SELFPAY | PROVIDERS: PCP Family Medicine; Referring Provider Family Medicine; Visit Provider Physical Therapy Assistant | DX: L72.3 Sebaceous cyst (principal) | CPT/HCPCS: 11421; 99214 ==

== ENCOUNTER → 2024-01-06 10:03 | Outpatient (BNVA) | payer MEDICARE, BC, SELFPAY | PROVIDERS: PCP Family Medicine; Referring Provider Family Medicine; Visit Provider Physical Therapy Assistant | DX: Z12.11 Encounter for screening for malignant neoplasm of colon (principal); Z86.010 Personal history of colon polyps ==

== ENCOUNTER 2024-01-17 06:10 | Day surgery (SDC) | payer MEDICARE, BC, SELFPAY ==
--- NOTE | 2024-01-16 19:44 | W.PM.DSUDISC ---
Date of service: 01/17/24 Time of Service: 08:14 Discharge Plan Disposition Patient Disposition: Home Condition: Good Discharge Details Reason For Visit: screening colonoscopy Attending Provider: Clemente Minor Primary Care Provider: Vicente Lozano Home Meds and New Rx's Prescriptions: Continued nitroglycerin 0.4 mg tablet, sublingual 0.4 mg Sublingual PRN Qty: 25 11RF Rx Instructions: NEEDED FOR CHEST PRESSURE, MAY PREPAT 3 TIMES AND GO TO EMERGENCY IF NEEDED aspirin 81 MG tablet,delayed release (DR/EC) 81 mg PO DAILY Centrum Silver 1 EACH tablet 1 ea PO DAILY cholecalciferol (vitamin D3) 1,000 unit (25 mcg) tablet 1,000 unit PO DAILY PRN Patient Comments: rosuvastatin [Crestor] 10 mg tablet 10 mg PO DAILY Qty: 90 3RF Rx Instructions: reduce risk of cardiovascular events following coronary disease metoprolol succinate 25 mg tablet extended release 24 hr 25 mg PO DAILY Qty: 90 3RF lisinopril 10 mg tablet 10 mg PO DAILY Qty: 90 3RF Discontinued bisacodyl [Dulcolax (bisacodyl)] 5 mg tablet,delayed release (DR/EC) 5 mg PO ONCE Qty: 4 0RF Rx Instructions: Take per colonoscopy instructions provided by ordering providers office bisacodyl [Dulcolax (bisacodyl)] 5 mg tablet,delayed release (DR/EC) 5 mg PO ONCE Qty: 4 0RF Rx Instructions: Take per colonoscopy instructions provided by ordering providers office polyethylene glycol 3350 17 gram/dose powder 17 g PO ONCE Qty: 238 0RF Rx Instructions: Take per colonoscopy instructions provided by ordering providers office Discharge Instructions Instructions: Colon polyps Additional Instructions: Meal, we were able to complete your colonoscopy today without any difficulty. I did find and remove for polyps today. All of these will be sent off for testing, and once I know the nature of these polyps, my office will be in touch with recommendations for the timing of your next colonoscopy. If you need anything in the meantime, please do not hesitate to call or ask at any point. 1. If tolerated, consume a soft, low fiber diet for 1-2 days. [address] Do not drive, drink alcohol, operate machinery, make critical decisions, or do activities that require coordination or balance for 24 hours. 3. Because air was put into your colon during the procedure, expelling air from your rectum (passing gas or farting) is normal. 4. You may not have a bowel movement for 1-3 days because of the colonoscopy prep. This is normal. 5. Go directly to the emergency room if you notice any of the following: Develop chills (warm to touch), or if you have a thermometer and your temperature is above 101 Difficulty breathing or difficultly swallowing Persistent vomiting Severe abdominal pain, other than gas cramps Severe chest pain Black, tarry stools Any bleeding ? exceeding one tablespoon 6. Call your physician if the site where your intravenous was started becomes red, swollen, painful, and warm to touch. 7. Your physician has reviewed your pre-procedure medications. Please continue to take those medications as previously ordered. You will be given specific information/education regarding any changes to your medications before leaving. Stand Alone Forms: Anesthesia Discharge InstTrinity Archer (DSU) Activity:: Activity as Tolerated Diet:: As Tolerated Discharge Orders Discharge Orders: Discharge Order (Routine); Ordered 01/16/24 Ordered By: Clemente Minor DS: Diagnosis Discharge Diagnosis (1) Encounter for screening colonoscopy: Status: Acute Asessment and Plan: Follow-up on polypectomy results
--- NOTE | 2024-01-16 19:46 | W.COLOREPORT ---
Date of service: 01/17/24 Time of Service: 08:17 Colonoscopy Report Date of procedure: 01/17/24 Pre-op diagnosis general: screening colonoscopy Post-op diagnosis procedure note: other (Colon polyps) Procedure: colonoscopy with polypectomy Surgeon: Clemente Minor Anesthesia Type: General:No Airway Estimated blood loss (mL): 5 Pathology: other (0.25 cm polyp at 85 cm, 0.25 cm polyp at 80 cm, 0.25 cm polyp at 65 cm, 0.25 cm polyp at 45 cm) Complications: None Disposition: same day Indications: Dayton is a 78 year old man with a history of adenomatous polyps who needs his next screening colonoscopy Prep: Miralax/Dulcolax Procedure Start Time: 07:33 Procedure End Time: 07:58 Retraction Time: 17 Findings: 0.25 cm polyp at 85 cm, 0.25 cm polyp at 80 cm, 0.25 cm polyp at 65 cm, 0.25 cm polyp at 45 cm Procedure Description: After the induction of anesthesia, and with the patient in left lateral decubitus position, I began by performing an external anorectal exam.? Perineum and skin were normal, as was the anal verge.? There was no evidence of external hemorrhoids.? Next, I performed a digital rectal exam.? I did not appreciate any abnormal findings.? Next, I advanced a colonoscope into the rectal vault.? I performed retroflexion.? This was normal.? Using insufflation, I then advanced the colonoscope beyond the rectal folds and into the sigmoid colon before advancing towards the cecum.? The scope was noted to be in the cecum by identification of the ileocecal valve and appendiceal orifice.? I then began withdrawing the colonoscope using repeated irrigation as necessary for full evaluation of the colonic mucosa. Around 85 cm from the anal verge was a 0.25 cm flat polyp. This was removed with cold forceps. Similarly, another flat polyp was found at 80 cm. This was also about 0.25 cm. This was also flat in nature, and the bleeding at each site was minimal after polypectomy. I continued to withdraw the colonoscope. I found another flat polyp at 65 cm, and another 1 at 45 cm. These were also about 0.25 cm, and mostly flat in character. These were also removed with cold forceps without any issues. Once the scope was withdrawn to the level of the rectum, great care was taken to examine portions of the rectal folds.? Finally, the scope was withdrawn and the patient was brought to the same-day surgery recovery unit as the anesthetic wore off. ?The findings and instructions were shared with the patient prior to discharge. [place] Bowel Prep [place] Bowel Prep Right Colon: 3 Left Colon: 3 Transverse Colon: 3 Total Score: 9
[2024-01-17 06:16] VITALS: BP 146/97; PULSE 75; RESP 16; TEMP 35.9; O2SAT 96
[2024-01-17] MEDS: Lactated Ringers 1,000 ML 80 ML IV (06:50)
--- NOTE | 2024-01-17 06:54 | ANES.PREOP_ITS ---
General Info Date of Service Date Performed: 01/17/24 Height: 5 ft 10.5 in Weight: 96.3 kg Body Mass Index (BMI): 30.0 Surgical Procedure: Operation Date: 01/17/24 07:35 Proposed Procedure Side Surgeon jakob Minor MD Meds Allergies and Home Medications Allergies Allergy/AdvReac Type Severity Reaction Status Date / Time No Known Allergies Allergy Verified 01/17/24 06:39 Home Medication ?Medication ?Instructions ?Recorded aspirin 81 mg tablet,delayed 81 mg PO DAILY 09/20/12 release qnbgroxr-rpr-mnqcy acid 0.4 1 ea PO DAILY 11/26/14 mg-lycopene 300 mcg-lutein 250 mcg tablet (Centrum Silver) cholecalciferol (vitamin D3) 25 1,000 unit PO DAILY PRN 03/28/19 mcg (1,000 unit) tablet nitroglycerin 0.4 mg sublingual 0.4 mg sublingual PRN #25 tabs 08/27/22 tablet rosuvastatin 10 mg tablet (Crestor) 10 mg PO DAILY #90 tab-caps 11/01/23 metoprolol succinate 25 mg 25 mg PO DAILY #90 tabs 01/04/24 tablet,extended release 24 hr lisinopril 10 mg tablet 10 mg PO DAILY #90 tabs 01/12/24 Current Visit Medications: Current Medications Generic Name Dose Route Start Last Admin Trade Name Freq PRN Reason Stop Dose Admin Ringer's Solution 1,000 mls @ 80 mls/hr 01/17/24 06:00 01/17/24 06:50 IV 02/13/24 23:59 80 mls/hr INFUSION MARI Administration IV Miscellaneous Supplies 1 each 01/17/24 06:00 Iv Access IV 02/13/24 23:59 DIRECTED MARI Ondansetron HCl 4 mg 01/16/24 19:47 Ondansetron 4 Mg/2 Ml Vial IVP 02/15/24 19:46 Q4H PRN PRN Nausea / Vomiting Sodium Chloride 0 ml 01/17/24 06:00 Normal Saline Flush 10 Ml Syr IV 02/13/24 23:59 PRN PRN Sodium Chloride 0 ml 01/17/24 06:00 Normal Saline 10 Ml Vial IJ 02/13/24 23:59 DIRECTED PRN Sterile Water 0 ml 01/17/24 06:00 Water,Injection,Sterile 10 Ml Vial IJ 02/13/24 23:59 DIRECTED PRN PFS Active Problems Active Problems: Problem Status Onset Code Encounter for screening colonoscopy Acute Z12.11 Sebaceous cyst Acute L72.3 Verruca vulgaris Acute B07.9 Inflamed acrochordon Acute L91.8 Seborrheic keratosis, inflamed Acute L82.0 Osteoarthritis Chronic M19.90 Carpal tunnel syndrome on left Acute G56.02 Spider veins Acute I78.1 Serrated adenoma of colon Acute ~07/2020 D12.6 Tubulovillous adenoma Acute ~07/2020 D36.9 Colon cancer screening Acute Z12.11 Benign positional vertigo Acute H81.10 Right rotator cuff tendinitis Acute M75.81 Shoulder arthritis Acute M19.019 Diabetes mellitus type 2, diet-controlled Acute E11.9 Anterior subluxation or dislocation of shoulder Acute 06/11/13 Injury of Achilles tendon Acute 09/14/14 S86.009A Counseling on health promotion and disease prevention Acute Z71.89 Varicocele Chronic I86.1 Urinary hesitancy Chronic R39.11 Thrombocytopenia Chronic 05/21/16 D69.6 Skin lesions Acute 07/26/14 L98.9 Seasonal and perennial allergic rhinitis Acute 05/03/15 J30.89, J30.2 Renal cyst Acute N28.1 Prostatic calculi Acute 09/30/17 N42.0 Nocturia Acute 09/30/17 R35.1 Other and unspecified hyperlipidemia Acute 08/20/11 E78.5 Erectile dysfunction Acute N52.9 Esophageal reflux Chronic 08/20/11 K21.9 Dysmetabolic syndrome X Chronic 08/20/11 E88.81 Chronic rhinitis Chronic 01/02/13 J31.0 Coronary atherosclerosis of [place] coronary vessel Acute 03/31/05 I25.10 Benign localized prostatic hyperplasia with lower urinary tract symptoms (LUTS) Acute N40.1 Benign hypertension Chronic 05/31/04 I10 Atherosclerosis of [place] coronary artery of [place] heart without angina pectoris Acute 03/31/05 I25.10 Actinic keratosis Acute 08/20/11 L57.0 Abnormal fasting glucose Acute 02/23/17 R73.01 Medical History Medical History 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 Surgical History Surgical History S/P skin biopsy (12/17/23) Dr Humberto Figueroa posterior auricle--invasive SCC R posterior thigh S/P excision of ganglion cyst right wrist S/P angioplasty with stent (~2004) H/O: vasectomy Colonoscopy - IV Sedation (02/11/15) DR. GINO YUSUF Tobacco Smoking/Tobacco Use Status: Former Tobacco Use Passive smoking exposure: No Alcohol Alcohol Intake: current Alcohol intake frequency: a few times a month Substance Use Substance use: Never Substance use type: does not use Vital Signs and Lab Results Vital Signs Most Recent Vital Signs in EMR: Most Recent Vital Signs Temp Pulse Resp BP Pulse Ox 35.9 C L 75 16 146/97 H 96 01/17/24 06:16 01/17/24 06:16 01/17/24 06:16 01/17/24 06:16 01/17/24 06:16 Lab Results Blood Type / Crossmatch: No Data to Display Complete Blood Count: No Data to Display Complete Metabolic Panel: No Data to Display Liver Function Panel: No Data to Display Coagulation Panel: No Data to Display Cardiac Panel: No Data to Display Arterial Blood Gas: No Data to Display Venous Blood Gas: No Data to Display Pancreas Panel: No Data to Display Thyroid Panel: No Data to Display Infectious Disease: No Data to Display Blood Cultures: No Data to Display Toxicology Panel: No Data to Display Imaging and Studies Imaging and Studies Study information below may be from another EMR and interpreted by another provider. Please see original notes in EMR for more complete details. EKG Summary: EKG PATIENT NAME: BECCA MORAN #: [id number] ORDERING PROVIDER: Vicente Lozano DOACCOUNT #: [id number] PRIMARY CARE PROVIDER:VICENTE LOZANO DO DATE/TIME OF SERVICE: 01/29/20 1050 : 1945PERFORMING LOCATION: [facility] APPROVED REPORT Exam: Resting ECG Patient Location: O HR:71 bpm ECG Measurements Heart Rate 71 AXIS AR 157 P 32 QRSd 106 QRS 43 QT 382 T18 QTc 415 Conclusion Sinus rhythm...normal P axis, V-rate 60- 99 Normal Electrocardiogram Stress Test Summary: STRESS TEST PATIENT NAME: BECCA MORAN #: [id number] ADMITTING PROVIDER: ROSE VIDAL, PREETHACCOUNT #: [id number] PRIMARY CARE PROVIDER:VICENTE AGUIAR M.D.DATE OF SERVICE: 01/30/16 : 1945 *[facility]* *[facility]* [address] [place] [address] Stress Electrocardiography Ganga protocol Date of study: 01/30/2016 (Report amended ) *PATIENT PRESENTATION* Height: 180.3cm ((71in) ) Blood Pressure: Weight: 104.5kg ((230lb) ) BSA: 2.32m^2 Ordering physician: Benjamin Mccann MD Impressions: Normal study after maximal exercise. Recommendations: Continue cardiac secondary prevention. Indication: I25.10. History: PATIENT PRESENTS TODAY FOR TREADMILL STRESS TEST AFTER VISITING HIS PCP DR. AGUIAR. PT REPORTS PREVIOUS CORONARY ARTERY DISEASE AND HAS NOT HAD A STRESS TEST IN MANY YEARS. PAST MEDICAL HISTORY: HYPERTENSION, MYALGIA, ATHEROSCLEROSIS, HX STENTS X2 IN 2004. FAMILY HX: FATHER AT AGE 58 OF [place]. BROTHER HX STENT PLACEMENT. SMOKING STATUS: FORMER SMOKER EXERCISE ROUTINE: 30 MINS/ 5-7 DAYS A WEEK. Risk factors: Hypertension. Obesity. Dyslipidemia. Cholesterol: 100mg/dl. HDL: 29mg/dl. LDL: 47mg/dl. Triglycerides: 281mg/dl. Peripheral vascular disease. ALLERGIES: NKDA MEDICATIONS: RANITIDINE HCL 150 MG BID PRN, NITROGLYCERIN 0.4MG SL PRN, MULTIVITAMIN DAILY, MECLIZINE HCL 25MG BID, LISINOPRIL 10MG DAILY, FLUTICASONE NS PRN, FEXOFENADINE HCL BID PRN, VITAMIN D3 1,000 UNITS DAILY, ATORVASTATIN 20MG DAILY, ATENOLOL 50MG DAILY, ASPIRIN 81MG DAILY. Protocol: Ganga protocol. Baseline ECG: SINUS RHYTHM 89 BPM. SINUS RHYTHM Stress protocol: + +---+ + !Stage !HR !BP (mmHg) ! + +---+ + !Baseline supine !89 !146/90 (109) ! + +---+ + !Baseline standing !103!130/90 (103) ! + +---+ + !Stage I; 1.7mph, 10degrees; 3 min !122!140/100 (113)! + +---+ + !Stage II; 2.5mph, 12degrees; 3 min !121!156/90 (112) ! + +---+ + !Stage III; 3.4mph, 14degrees; 3 min!148!160/90 (113) ! + +---+ + !Peak stress !169! ! + +---+ + !Immediate post stress !160!170/80 (110) ! + +---+ + !Recovery; 1 min !111!210/80 (123) ! + +---+ + !Recovery; 3 min !94 !160/74 (103) ! + +---+ + !Recovery; 6 min !102!146/88 (107) ! + +---+ + !Recovery; 9 min !101!134/84 (101) ! + +---+ + * Stress results: [id number] The rate-pressure product for the peak heart rate and blood pressure was 43146ea Hg/min. Stress ECG: TREADMILL STRESS TEST ENDED DUE TO PATIENT FATIGUE AT 10 MINUTES AND 36 SECONDS. MAX HEART RATE: 169 PERCENT OF TARGET: 111% NORMAL BLOOD PRESSURE AND HEART RATE RESPONSE NOTED. 1 PVC NOTED AT 2 MINUTES 1 SECOND OF RECOVERY. APPROXIMATE METS ACHIEVED: 13.[address] DEPRESSION IN V4-V6 TOWARDS THE END OF STRESS TEST. FUNCTIONAL CAPACITY: ABOVE AVERAGE. Study data: Dr. Kirk supervised and was readily available during the procedure. This study was interpreted by [facility]. Study status: Routine. Consent: The risks, benefits, and alternatives to the procedure were explained to the patient and informed consent was obtained. Procedure: Initial setup. A baseline ECG was recorded. Surface ECG leads and manual cuff blood pressure measurements were monitored. Heart sounds: Normal. Lung sounds: Normal. Treadmill exercise testing was performed using the Ganga protocol. Study completion: The patient tolerated the procedure well and was discharged from the lab. Discharge: The patient left the laboratory in stable condition. Birthdate: Patient birthdate: 1945. Sex: Gender: male. Study date: Study date: 01/30/2016. Study time: 10:00 AM. Echocardiogram Summary: Patient Name: BECCA MORAN #: [id number]: DI Ordering Provider: Vicente Lozano DOAccount #: [id number]: REG CLI Primary Care Provider: Vicente Lozanoate of Exam: 09/03/17ex: M : 1945ge: 72 Exam(s) [id number] US:Echocardiogram Heart *[facility]* *[facility]* [address] [place] [address] Date of study: 09/03/2017 Transthoracic Echocardiography M-mode, complete 2D, complete spectral Doppler, and color Doppler *STUDY CONCLUSIONS* Summary: 1. Left ventricle: The cavity size was normal. Wall thickness was at the upper limits of normal. Systolic function was normal. The estimated ejection fraction was 55-60%. Wall motion was normal; there were no regional wall motion abnormalities. 2. Right ventricle: The cavity size was at the upper limits of normal. Systolic function was normal. 3. Mitral valve: Mildly thickened leaflets. Redundant mitral chordae tendinea prolapsing into LVOT. No significant LVOT obstruction/ gradient. 4. Aortic root: The aortic root was mildly dilated (40 mm). 5. Ascending aorta: The ascending aorta was mildly dilated (43 mm). 6. Inferior vena cava: The vessel was patent and normal in size. The respirophasic diameter changes were in the normal range (greater than or equal to 50%), consistent with normal central venous pressure. Carotid Artery Summary:: Patient Name: BECCA MORAN #: [id number]: DI Ordering Provider: Vicente Lozano DOAccount #: [id number]: REG CLI Primary Care Provider: Vicente Lozano of Exam: 09/01/17ex: M : 1945ge: 72 Exam(s) [id number] US:Carotid SYMPTOMS/DIAGNOSIS: PRESYNCOPE, R55 CAROTID ULTRASOUND: There is a mild amount of intimal thickening in the common carotid arteries bilaterally. A mild amount of calcific plaque is seen in the common carotid bulbs. The velocity measurements are within the normal range. There is no visible stenosis. The vertebral arteries show antegrade flow. IMPRESSION: No significant interval carotid artery stenosis. Mild amount of plaque. Anesthesia Assessment and Plan Anesthesia History Personal History: No History of Anesthesia Complications Family History: No Family History of Anesthesia Complications Exercise Tolerance Exercise Tolerance: Metabolic Equivalents>4 Pertinent Negatives Pertinent Negatives: No Symptoms of GERD Cardiac & Pulmonary Exam Cardiac Exam: Normal S1/S2 Heart Sounds Pulmonary Exam: Clear Bilateral Breath Sounds Implantable Cardiac Device Does patient have a Pacemaker or an ICD?: No Airway Exam Known Difficult Airway: No Mallampati Class: 2 Mouth Opening: Normal (> 3cm) Thyromental Distance: Greater than 3 cm Neck Range of Motion: Full ROM Neck Circumference: Normal Teeth Condition: Normal Dentition ASA Classification ASA Score: ASA 2 Emergency Case?: No NPO Status NPO Status: NPO Clears >2 hours, Solids >8 hours Anesthesia Plan Resuscitation Status: Full Code Anesthesia Technique: General Anesthesia Airway Planned: Natural Airway Monitors Used: Standard Monitors
--- NOTE | 2024-01-17 07:45 | BOWEL_PTH ---
PATIENT: Dayton Mcclure LOC: [facility] U#:[id number] AGE/SX: 78/M ROOM: RE01/17/[address]: Clemente Minor MD : 1945 BED: DIS: 01/17/2024 SPEC #: [id number] RECD: 01/17/24 12:34 STATUS: [place] REQ #: [id number] DOMINIQUE: 01/17/24 07:[address]: Clemente Minor DEPT: Surgical Specimen RECD BY: Radha Sapp ENTERED: 01/17/24 12:37 SP TYPE: Bowel OTHR DR: Vicente Lozano DO Tissues: 1 - BIOPSY BOWEL 2 - BIOPSY BOWEL 3 - BIOPSY BOWEL 4 - BIOPSY BOWEL Procedures: GROSS AND MICRO LEVEL 4 Comments: [id number]
[2024-01-17 08:02] VITALS: BP 103/64; PULSE 78; RESP 15; TEMP 36.4; O2SAT 93
--- NOTE | 2024-01-17 08:06 | W.ANESPOSTOP ---
Postoperative Evaluation Date, Time and Location Date Performed: 01/17/24 Time Performed: 08:06 Patient Location: Day Surgery Unit Vital Signs Most Recent Imported Vital Signs: Most Recent Vital Signs Temp Pulse Resp BP Pulse Ox 35.9 C L 75 16 146/97 H 96 01/17/24 06:16 01/17/24 06:16 01/17/24 06:16 01/17/24 06:16 01/17/24 06:16 Pain Score Most Recent Pain Score: Most Recent Pain Score Pain Level 0 01/17/24 06:16 Assessment Mental Status: Awake (Alert & Oriented to Patient Baseline) Airway and Respiratory Function: Patent airway with normal (patient baseline) respiratory exam Cardiovascular Function: Hemodynamically Stable Hydration Status: Adequately Hydrated Nausea & Vomiting: No Nausea or Vomiting Pain: Pt. Denies Any Pain Peripheral Nerve Block: Patient did not receive a nerve block
[2024-01-17 08:32] VITALS: BP 136/82; PULSE 78; RESP 18; TEMP 36.4; O2SAT 97
== END 2024-01-17 08:58 | disposition home or self-care (01) ==
LOC: SUR 06:10
PROVIDERS: PCP Family Medicine; Visit Provider Surgery
PROC: 0DJD8ZZ Inspection of Lower Intestinal Tract, Via Natural or Artificial Opening Endoscopic (ICD-10-PCS; CPT 45378; principal; 2024-01-17 07:30)
DX: Z12.11 Encounter for screening for malignant neoplasm of colon (principal); D12.4 Benign neoplasm of descending colon; D12.5 Benign neoplasm of sigmoid colon
CPT/HCPCS: 45380; 88305; J2001; J2704

== ENCOUNTER 2024-05-18 18:26 | Emergency (ER) | payer MEDICARE, BC, SELFPAY ==
[2024-05-18] VITALS (10 sets, daily range): BP systolic 144–162; BP diastolic 80–99; PULSE 79–88; RESP 16; TEMP 36.7; O2SAT 92–98
--- NOTE | 2024-05-18 19:00 | DI.CT_ITS ---
Exam(s) CT CHEST/ABD/PEL W EXAM: CT CHEST/ABD/PEL W CLINICAL HISTORY: fall, R flank pain. TECHNIQUE: Imaging Protocol: Axial computed tomography images with coronal and sagittal reformatted images were created and reviewed CONTRAST MATERIAL: Intravenous: Omnipaque 350 Contrast volume:100 ml Oral: None COMPARISON: CT RENAL COLIC WO CONTRAST from 01/26/2017 FINDINGS: CHEST: LUNGS: No evidence of lung contusion nor pleural effusion or pneumothorax. There is a tiny calcified granuloma in the apical posterior segment of the left upper lobe as well as a small benign-appearing fissure related 2 millimeter nodule in the left lung. There are no ominous pulmonary nodules nor pl eural effusions.. MEDIASTINUM: There is no evidence of sternal fracture or mediastinal hematoma. No incidental hilar a re nor mediastinal adenopathy. CARDIAC: Heart size is normal. There is no pericardial effusion.The diameter of the ascending thorac ic aorta is enlarged measuring 4.4 cm. The diameter of the mid thoracic aortic arch is also enlarged measuring 3 cm, and the diameter of the proximal descending thoracic aorta is also enlarged measurin g 3 cm. The diameter of the mid descending thoracic aorta is also 3 cm. There is no dissection evid ent. No evidence of aneurysm of the abdominal aorta and aortoiliac segments OSSEOUS: No significant osseous lesions.No fractures evident.. ABDOMEN: There is no ascites. No evidence of mesenteric nor bowel wall hematoma. LIVER: No laceration nor subcapsular hematomas. Liver is hypodense implying steatosis. There is a b enign-appearing cyst in the right hepatic lobe which is unchanged from 2017, measuring 1 cm. No new ominous focal hepatic lesions nor dilated intrahepatic ducts. GALLBLADDER/BILIARY: Cholelithiasis is again noted, as was also evident on CT scan of 2017. No gallb ladder wall edema nor pericholecystic fluid. CBD is not dilated. PANCREAS: No evidence of pancreatic mass nor dilatation of the pancreatic duct. SPLEEN: Normal size. No lacerations. No lesions. Splenic and portal veins are patent. ADRENALS: There are no significant adrenal masses. KIDNEYS: No renal lacerations nor subcapsular hematomas. There are benign-appearing cysts in both ki dneys. The largest is again noted to be in the left kidney and measures 8.5 by 7 cm. Largest cyst i n the right kidney measures 2.7 cm. These benign cysts do not require further workup. There no mabel d renal masses. There is a nonobstructive 3 millimeter calculus in the inferior pole of the right ki dney again noted. There are no radiopaque calculi evident in the left kidney. There is no hydroneph rosis nor hydroureter.. ABDOMINAL AORTA: Abdominal aorta is not enlarged. LYMPH NODES: There is no retroperitoneal nor paraaortic adenopathy. ABDOMINAL WALL: No evidence of significant anterior abdominal wall nor inguinal hernia. GI: There is no evidence of bowel obstruction.No ileus pattern PELVIS: LYMPH NODES: There is no intrapelvic nor inguinal adenopathy. GI: No evidence of appendicitis.No evidence of sigmoid diverticulitis. URINARY BLADDER: There is a solitary tiny 2 millimeter calcification in the urinary bladder, probably a previously passed calculus. REPRODUCTIVE: Prostate gland is moderately enlarged measuring 5.7 cm wide. There is no obturator joaquin nopathy. OSSEOUS: There are nondisplaced fractures of the right transverse process is of L1 and L2. No promin ent surrounding hematomas. IMPRESSION: 1. There are nondisplaced fractures of the right transverse process is of L1 and L2 vertebral bodies. No evidence of vertebral compression fractures. 2. Incidentally noted is enlargement of the thoracic aorta the ascending thoracic aorta measuring 4.4 cm and the aortic arch and descending thoracic aorta measuring 3 cm. There is no evidence of dissec tion or pericardial effusion. There is no evidence of aneurysm of the abdominal aorta and iliac radhika low. 3. Small 3 mm nonobstructive calculus lower pole the right kidney. There is also a tiny 1-2 mm calcu sen in the urinary bladder lumen which is probably related to a previously passed stone. 4. Moderately enlarged prostate gland. Report called by myself to ER provider 05/18/2024 at 8:19 p.m. RADIATION DOSE DELIVERED: 573.42mGy.cm Total DLP DATA REPOSITORY: All CT scans at this facility are submitted to the National Radiology Data Registry (NRDR) Dose Index Registry (DIR) with the [employer] ([employer]). RADIATION OPTIMIZATION: All CT scans at this facility use at least one of these dose optimization te chniques: automated exposure control; mA and/or kV adjustment per patient size (includes targeted exa ms where dose is matched to clinical indication); or iterative reconstruction.
--- NOTE | 2024-05-18 19:00 | DI.CT_ITS ---
Exam(s) CT CERVICAL SPINE WO EXAM: CT CERVICAL SPINE WO CLINICAL HISTORY: neck pain, fall. TECHNIQUE: Imaging Protocol: Axial computed tomography images with coronal and sagittal reformatted images were created and reviewed COMPARISON: No exams were available for comparison FINDINGS: CERVICAL SPINE: There is no evidence of acute fracture nor significant listhesis.. No significant prevertebral soft tissue swelling. There is multilevel chronic disc space narrowing, most prominent at C5-6 and C6-7 levels. There is a lso incidentally noted DISH-type anterior flowing calcification at this and below C7 level. No signi ficant osseous lesions. Some facet arthropathy is noted in the mid-upper cervical spine right side. There is no facet malali gnment. There is multilevel chronic degenerative disc disease and multilevel posterior bony ridging with mult ilevel spinal canal stenosis. No significant osseous lesions evident. IMPRESSION: Multilevel chronic degenerative disc disease and facet arthropathy. There is multilevel spinal canal stenosis. However, there is no evidence of cervical spine fracture, malalignment, nor acute osseous compromise of the cervical spinal canal. RADIATION DOSE DELIVERED: 423.16mGy.cm Total DLP DATA REPOSITORY: All CT scans at this facility are submitted to the National Radiology Data Registry (NRDR) Dose Index Registry (DIR) with the [employer] ([employer]). RADIATION OPTIMIZATION: All CT scans at this facility use at least one of these dose optimization te chniques: automated exposure control; mA and/or kV adjustment per patient size (includes targeted exa ms where dose is matched to clinical indication); or iterative reconstruction.
--- NOTE | 2024-05-18 19:07 | ED.GENADUL_ITS ---
Discharge Plan Disposition Patient Disposition: Home Condition: Stable Discharge Details Clinical Impression: Lumbar transverse process fracture Primary Care Provider: Vicente Lozano ED Provider: Ramsey Frazier Home Meds and New Rx's Prescriptions: Continued fexofenadine [Viry Allergy] 60 mg tablet 60 mg PO BID PRN nitroglycerin 0.4 mg tablet, sublingual 0.4 mg Sublingual PRN Qty: 25 11RF Rx Instructions: NEEDED FOR CHEST PRESSURE, MAY PREPAT 3 TIMES AND GO TO EMERGENCY IF NEEDED aspirin 81 MG tablet,delayed release (DR/EC) 81 mg PO DAILY Centrum Silver 1 EACH tablet 1 ea PO DAILY cholecalciferol (vitamin D3) 1,000 unit (25 mcg) tablet 1,000 unit PO DAILY PRN Patient Comments: rosuvastatin [Crestor] 10 mg tablet 10 mg PO DAILY Qty: 90 3RF Rx Instructions: reduce risk of cardiovascular events following coronary disease metoprolol succinate 25 mg tablet extended release 24 hr 25 mg PO DAILY Qty: 90 3RF lisinopril 10 mg tablet 10 mg PO DAILY Qty: 90 3RF Discharge Instructions Instructions: Low Back Pain ED Additional Instructions: You were seen in the emergency department for your fall on stairs at home, you have right lower back pain, we found that you have 2 transverse process fractures of the L1 and L2 vertebrae that are nondisplaced. Please take 650 mg of Tylenol every 6 hours, take 400 mg of ibuprofen every 6 hours, stagger these medications by couple hours. Use an hjwv-dev-zbsujue lidocaine patch for 12 hours each day, trial [id number] Voltaren gel to areas of pain, please follow-up with her primary care provider to ensure routine healing of these fractures, please return to the emergency department for any severe increase in pain, hematuria, urinary retention, bowel incontinence, numbness to the genitals. Referrals: Vicente Lozano DO [Primary Care Provider] - Discharge Data Discharge Date/Time-TO BE ENTERED AT DEPARTURE: 05/18/24 20:52 HPI General Date/Time Provider Initiated Documentation: 05/18/24 19:04 . HPI Narrative: 78 year-old male presents to ED today by POV/ambulating with a chief complaint of fall onto his back, a stair broke, with onset around 1700 today. Quality described as pain to upper lumbar back/flank on R side, and R shoulder, no radiation to headstrike, LOC, numbness/tingling, nausea, endorses mild neck pain, denies hematuria. Severity is described as 9/10. Palliating factors include nothing specific attempted. Provoking factors include nothing specific. Patient not anticoagulated. Related Data Home Medications ?Medication ?Instructions ?Recorded ?Confirmed aspirin 81 mg tablet,delayed 81 mg PO DAILY 09/20/12 05/18/24 release hagcasgp-teu-clkma acid 0.4 1 ea PO DAILY 11/26/14 05/18/24 mg-lycopene 300 mcg-lutein 250 mcg tablet (Centrum Silver) cholecalciferol (vitamin D3) 25 1,000 unit PO DAILY PRN 03/28/19 05/18/24 mcg (1,000 unit) tablet nitroglycerin 0.4 mg sublingual 0.4 mg sublingual PRN #25 tabs 08/27/22 05/18/24 tablet rosuvastatin 10 mg tablet (Crestor) 10 mg PO DAILY #90 tab-caps 11/01/23 05/18/24 metoprolol succinate 25 mg 25 mg PO DAILY #90 tabs 01/04/24 05/18/24 tablet,extended release 24 hr lisinopril 10 mg tablet 10 mg PO DAILY #90 tabs 01/12/24 05/18/24 fexofenadine 60 mg tablet (Viry 60 mg PO BID PRN 03/09/24 05/18/24 Allergy) Previous Rx's ?Medication ?Instructions ?Recorded nitroglycerin 0.4 mg sublingual 0.4 mg sublingual PRN #25 tabs 08/27/22 tablet rosuvastatin 10 mg tablet (Crestor) 10 mg PO DAILY #90 tab-caps 11/01/23 metoprolol succinate 25 mg 25 mg PO DAILY #90 tabs 01/04/24 tablet,extended release 24 hr lisinopril 10 mg tablet 10 mg PO DAILY #90 tabs 01/12/24 Allergies Allergy/AdvReac Type Severity Reaction Status Date / Time No Known Allergies Allergy Verified 05/18/24 18:31 General Stated Complaint: Fall/Non TraumaCriteria RENEE: 3 Review of Systems All systems reviewed & are unremarkable except as noted in HPI and below Exam Narrative Exam Narrative: GENERAL APPEARANCE: Well-nourished, non-toxic, awake and alert, atraumatic, no acute distress. SKIN: Warm, pink, dry, intact, without rashes/lesions/ulcerations. HEAD: Normocephalic, atraumatic- no scalp hematoma, normal hair distribution for gender/age. EYES: Normal conjunctiva, no exudates on lids/lashes. ENT: Nares patent, no circumoral cyanosis, no facial swelling NECK: Supple, trachea midline, painful cervical ROM, no midline tenderness. LUNGS/CHEST: Lungs CTA bilaterally, non-labored respirations, normal A/P diameter, symmetrical expansion, no chest wall deformity HEART (CV/PV): Regular rate and rhythm without murmur, no peripheral edema, no JVD. ABDOMEN: Soft, non-distended, no guarding. MSK: Normal ROM, no swelling/deformity to bilateral UEs or LEs, moving all extremities without weakness, no cyanosis, spine midline with lumbar tenderness normal curvature. NEURO: Mental Status AAOx4 - alert to person, place, time, events No facial droop, no forehead involvement. Motor: No focal weakness - strength 5/5 in bilateral UEs and LEs, proximal and distal, symmetric. Sensory: sensation intact to light touch globally. Gait normal: patient ambulated without ataxia into ED room. PSYCH: euthymic, cooperative, pleasant, appropriate speech Course Vital Signs Vital signs: Vital Signs Temperature 36.7 C 05/18/24 18:33 Pulse 88 05/18/24 18:33 Respiratory Rate 16 05/18/24 18:33 Blood Pressure 158/99 H 05/18/24 18:33 Pulse Oximetry 98 05/18/24 18:33 Temperature 36.7 C 05/18/24 18:33 Temperature Source Tympanic 05/18/24 18:33 Pulse 88 05/18/24 18:33 Respiratory Rate 16 05/18/24 18:33 Blood Pressure 158/99 H 05/18/24 18:33 Blood Pressure Position Sitting 05/18/24 18:33 Pulse Oximetry 98 05/18/24 18:33 Oxygen Delivery Method Room Air 05/18/24 18:33 Oxygen Flow Rate 0 05/18/24 18:33 Pain Level 8 05/18/24 18:33 Medical Decision Making This dictation utilizes [id number] dictation software and may contain unedited grammatical errors. 78 year-old male presents to ED today by POV/ambulating with a chief complaint of fall onto his back, a stair broke, with onset around 1700 today. Quality described as pain to upper lumbar back/flank on R side, and R shoulder, no radiation to headstrike, LOC, numbness/tingling, nausea, endorses mild neck pain, denies hematuria. Severity is described as 9/10. Palliating factors include nothing specific attempted. Provoking factors include nothing specific. Patients' medical history: Osteoarthritis, prior surgery to right shoulder, otherwise noncontributory. Family and social history: No recent travel, no sick contacts, no ETOH Pertinent exam findings / vital signs include diffuse right-sided paraspinal tenderness throughout the lumbar region, right shoulder tenderness without crepitus or deformity or ecchymosis, neurovascular intact in all extremities, no evidence of head trauma. Differential / pathologies of concern include fracture, vertebral injury, fractured rib, pneumothorax, renal contusion. Diagnostic studies of: -CBC, CMP, lipase, UA, CT C-spine, CT chest abdomen pelvis with. -CBC without evidence of anemia -CMP no actionable abnormality lipase negative -UA benign -CT neck negative -CTs of chest abdomen pelvis show isolated lumbar transverse process fractures at L1-L2 Interventions of: -Provided Tylenol and Toradol, counseled the patient on lumbar transverse process fractures and likely need for a back brace but we do not have facility here that can provide this. ED Course/Assessment/Plan: 78-year-old male suffered a fall when a stair broke from under him injuring his upper lumbar back with 2 transverse process fractures, otherwise he is neuro intact and has no evidence of significant trauma, no pneumothorax or shoulder injury, the patient is comfortable with OTC analgesics and rest at home and he will follow-up with his primary care provider for any complications for possible repeat imaging or the need for a back brace. Findings not consistent with cauda equina, head trauma, renal contusion or pneumothorax. Disposition of lumbar transverse process fracture. Patient verbalized understanding of the plan and return to ED criteria and engaged in shared decision making. Medical Records Medical records reviewed: Yes I reviewed the patient's medical records. Imaging Data Radiologic Study: Attestation: I personally reviewed and interpreted this imaging study as follows: Imaging: CT Scan Radiologist's impression: EXAM: CT CERVICAL SPINE WO CLINICAL HISTORY: neck pain, fall. TECHNIQUE: Imaging Protocol: Axial computed tomography images with coronal and sagittal reformatted images were created and reviewed COMPARISON: No exams were available for comparison FINDINGS: CERVICAL SPINE: There is no evidence of acute fracture nor significant listhesis.. No significant prevertebral soft tissue swelling. There is multilevel chronic disc space narrowing, most prominent at C5-6 and C6- 7 levels. There is also incidentally noted DISH-type anterior flowing calcification at this and below C7 level. No significant osseous lesions. Some facet arthropathy is noted in the mid-upper cervical spine right side. There is no facet malalignment. There is multilevel chronic degenerative disc disease and multilevel posterior bony ridging with multilevel spinal canal stenosis. No significant osseous lesions evident. IMPRESSION: Multilevel chronic degenerative disc disease and facet arthropathy. There is multilevel spinal canal stenosis. However, there is no evidence of cervical spine fracture, malalignment, nor acute osseous compromise of the cervical spinal canal. Radiologic Study #2: Attestation: I personally reviewed and interpreted this imaging study as follows: Imaging: CT Scan Radiologist's impression: EXAM: CT CHEST/ABD/PEL W CLINICAL HISTORY: fall, R flank pain. TECHNIQUE: Imaging Protocol: Axial computed tomography images with coronal and sagittal reformatted images were created and reviewed CONTRAST MATERIAL: Intravenous: Omnipaque 350 Contrast volume:100 ml Oral: None COMPARISON: CT RENAL COLIC WO CONTRAST from 01/26/2017 FINDINGS: CHEST: LUNGS: No evidence of lung contusion nor pleural effusion or pneumothorax. There is a tiny calcified granuloma in the apical posterior segment of the left upper lobe as well as a small benign-appearing fissure related 2 millimeter nodule in the left lung. There are no ominous pulmonary nodules nor pleural effusions.. MEDIASTINUM: There is no evidence of sternal fracture or mediastinal hematoma. No incidental hilar are nor mediastinal adenopathy. CARDIAC: Heart size is normal. There is no pericardial effusion.The diameter of the ascending thoracic aorta is enlarged measuring 4.4 cm. The diameter of the mid thoracic aortic arch is also enlarged measuring 3 cm, and the diameter of the proximal descending thoracic aorta is also enlarged measuring 3 cm. The diameter of the mid descending thoracic aorta is also 3 cm. There is no dissection evident. No evidence of aneurysm of the abdominal aorta and aortoiliac segments OSSEOUS: No significant osseous lesions.No fractures evident.. ABDOMEN: There is no ascites. No evidence of mesenteric nor bowel wall hematoma. LIVER: No laceration nor subcapsular hematomas. Liver is hypodense implying steatosis. There is a benign-appearing cyst in the right hepatic lobe which is unchanged from 2017, measuring 1 cm. No new ominous focal hepatic lesions nor dilated intrahepatic ducts. GALLBLADDER/BILIARY: Cholelithiasis is again noted, as was also evident on CT scan of 2017. No gallbladder wall edema nor pericholecystic fluid. CBD is not dilated. PANCREAS: No evidence of pancreatic mass nor dilatation of the pancreatic duct. SPLEEN: Normal size. No lacerations. No lesions. Splenic and portal veins are patent. ADRENALS: There are no significant adrenal masses. KIDNEYS: No renal lacerations nor subcapsular hematomas. There are benign- appearing cysts in both kidneys. The largest is again noted to be in the left kidney and measures 8.5 by 7 cm. Largest cyst in the right kidney measures 2.7 cm. These benign cysts do not require further workup. There no solid renal masses. There is a nonobstructive 3 millimeter calculus in the inferior pole of the right kidney again noted. There are no radiopaque calculi evident in the left kidney. There is no hydronephrosis nor hydroureter.. ABDOMINAL AORTA: Abdominal aorta is not enlarged. LYMPH NODES: There is no retroperitoneal nor paraaortic adenopathy. ABDOMINAL WALL: No evidence of significant anterior abdominal wall nor inguinal hernia. GI: There is no evidence of bowel obstruction.No ileus pattern PELVIS: LYMPH NODES: There is no intrapelvic nor inguinal adenopathy. GI: No evidence of appendicitis.No evidence of sigmoid diverticulitis. URINARY BLADDER: There is a solitary tiny 2 millimeter calcification in the urinary bladder, probably a previously passed calculus. REPRODUCTIVE: Prostate gland is moderately enlarged measuring 5.7 cm wide. There is no obturator adenopathy. OSSEOUS: There are nondisplaced fractures of the right transverse process is of L1 and L2. No prominent surrounding hematomas. IMPRESSION: 1. There are nondisplaced fractures of the right transverse process is of L1 and L2 vertebral bodies. No evidence of vertebral compression fractures. 2. Incidentally noted is enlargement of the thoracic aorta the ascending thoracic aorta measuring 4.4 cm and the aortic arch and descending thoracic aorta measuring 3 cm. There is no evidence of dissection or pericardial effusi on. There is no evidence of aneurysm of the abdominal aorta and iliac arteries. 3. Small 3 mm nonobstructive calculus lower pole the right kidney. There is also a tiny 1-2 mm calculus in the urinary bladder lumen which is probably related to a previously passed stone. 4. Moderately enlarged prostate gland. Report called by myself to ER provider 05/18/2024 at 8:19 p.m. Lab Data Lab results reviewed: Yes I reviewed the patient's lab results. Labs: Laboratory Tests Range/Units 05/18/24 05/18/24 19:05 20:13 WBC (4.4-10.8) 10^3/uL 7.46 RBC (4.36-5.78) 10^6/uL 5.05 Hgb (13.5-17.5) g/dL 15.6 Hct (40.0-50.0) % 45.4 MCV (80-95) fL 90 MCH (27.0-33.0) pg 30.9 MCHC (32.0-36.0) % 34.4 RDW (11.8-14.1) % 11.9 Plt Count (130-400) 10^3/uL 121 L MPV (8.0-11.0) fL 11.6 H Immature Gran % % 0.5 Neutrophils % % 67.0 Lymphocytes % % 21.3 Monocytes % % 9.0 Eosinophils % % 1.7 Basophils % % 0.5 Nucleated RBC % (0.0-0.3) % 0.0 Absolute Neutrophils (1.2-6.7) 10^3/uL 4.99 Absolute Lymphocytes (1.2-3.4) 10^3/uL 1.59 Absolute Monocytes (0.1-0.8) 10^3/uL 0.67 Absolute Eosinophils (0.0-0.7) 10^3/uL 0.13 Absolute Basophils (0.0-0.2) 10^3/uL 0.04 Sodium (136-145) mmol/L 141 Potassium (3.5-5.1) mmol/L 3.8 Chloride (98-107) mmol/L 106 Carbon Dioxide (21.0-32.0) mmol/L 30.1 Anion Gap (3-11) mmol/L 4.9 BUN (7-18) mg/dL 27 H Creatinine (0.70-1.30) mg/dL 1.1 Est GFR (CKD-EPI 2020) (mL/min/1.73m2) 69.14 Glucose (74-106) mg/dL 130 H Calcium (8.5-10.1) mg/dL 9.1 Total Bilirubin (0.2-1.0) mg/dL 0.57 AST (15-37) U/L 29 ALT (16-63) U/L 44 Alkaline Phosphatase (46-116) U/L 72 Total Protein (6.4-8.2) g/dL 7.5 Albumin (3.4-5.0) g/dL 4.2 Lipase (<78) U/L 34 Urine Color (Yellow) Yellow Urine Clarity (Clear) Clear Urine pH (5-8) 5.5 Ur Specific [place] (1.005-1.025) 1.020 Urine Protein (Neg-Trace) mg/dL Negative Urine Ketones (Negative) mg/dL Negative Urine Blood (Negative) Small H Urine Nitrite (Negative) Negative Urine Bilirubin (Negative) Negative Urine Urobilinogen (Up to 0.2) mg/dL 0.2 Ur Leukocyte Esterase (Negative) Negative Urine RBC (0-2) HPF 0-2 Urine WBC (0-5) HPF 0-2 Ur Epithelial Cells (Negative) HPF Rare Urine Crystals (Negative) HPF Negative Urine Bacteria (Negative) HPF Rare Urine Casts (Negative) LPF Negative Urine Mucus (Negative) Negative Urine Other (Negative) Negative Ur Culture Indicated? 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 thigh (dermatofibroma, atypical and homosiderotic subtype) Dr Paul Encounter for screening colonoscopy (Acute) Sebaceous cyst (Acute) Verruca vulgaris (Acute) Inflamed acrochordon (Acute) Seborrheic keratosis, inflamed (Acute) Osteoarthritis (Chronic) Carpal tunnel syndrome on left (Acute) S/P ECTR: 05/13/2022 Spider veins (Acute) Serrated adenoma of colon (Acute ~07/2020) Tubulovillous adenoma (Acute ~07/2020) x3 Colon cancer screening (Acute) Benign positional vertigo (Acute) Right rotator cuff tendinitis (Acute) Shoulder arthritis (Acute) Diabetes mellitus type 2, diet-controlled (Acute) Anterior subluxation or dislocation of shoulder (Acute 06/11/13) Injury of Achilles tendon (Acute 09/14/14) Counseling on health promotion and disease prevention (Acute) Varicocele (Chronic) progress note date 04/01/17. Left, Asymptomatic Urinary hesitancy (Chronic) progress note date 04/01/17. Mild lower urinary tract symptoms likely related to BPH. Thrombocytopenia (Chronic 05/21/16) 116K in 2012; 117K 2015; ? due to Atorvastatin, persists despite change to Rosuvastatin Skin lesions (Acute 07/26/14) hyperkeratotic lower back: consider excision due to irritation with clothing 08/14/19 f/u with Dr Paul Seasonal and perennial allergic rhinitis (Acute 05/03/15) Renal cyst (Acute) progress note date 04/01/17. Large Left small parapelvic right asymptomatic Prostatic calculi (Acute 09/30/17) Nocturia (Acute 09/30/17) Other and unspecified hyperlipidemia (Acute 08/20/11) Erectile dysfunction (Acute) progress note date 04/01/17. Esophageal reflux (Chronic 08/20/11) Dysmetabolic syndrome X (Chronic 08/20/11) Chronic rhinitis (Chronic 01/02/13) Reminded that he has a prescription for fexofenadine. If he needs a refill, he will call. Coronary atherosclerosis of [place] coronary vessel (Acute 03/31/05) On aspirin and rosuvastatin and has excellent cholesterol control at present. Benign localized prostatic hyperplasia with lower urinary tract symptoms (LUTS) (Acute) progress note date 04/01/17. nocturia Benign hypertension (Chronic 05/31/04) Well controlled on metoprolol alone. 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 GINO YUSUF Family History Mother , high bp at age 94. Essential hypertension Father , [place], pipe smoker at age 58. Myocardial infarction Brother Age: 83 Diabetes Essential hypertension History of heart artery stent Tachycardia ablation Social History Smoking/Tobacco Use Status: Former Tobacco Use Quit Date: 05/31/76 Pack-years: 20 Tobacco: How many years used: 15 Smoking risk assessment performed?: Yes Alcohol Intake: current Alcohol Intake frequency: a few times a month Drug use: Never Substance use type: does not use Adopted: No Household members: spouse Housing: house Number of Children: 2 number of grandchildren: 4 Communication Needs: Hard of Hearing Education Level: high school Do you need help understanding health information?: Rarely current occupation: Retired Pets and animals: Yes (2) Pets and animals: dog(s) Sexually active: Yes Do you think of yourself as: straight/heterosexual Current gender identity: male What is your relationship status?: How often do you talk on the phone with friends or family?: once per week How often do you get together with friends or relatives?: once per week Do you belong to any clubs or organized social groups?: no Panel score (0-1 are the most socially isolated patients): 1 NHANES result reviewed/action taken: No What type of physical activity do you participate in: walking and other Details: Hiking Duration: 15-30 minutes/day Frequency: 5-6 times per week Bridget/Sikh: Hindu Special bridget needs: No Seatbelt use: always Helmet use: Yes Drive intox or ride w/intox chassis driver: No Water heater temp set <120 deg: Yes Working smoke detector in home: Yes Fire extinguisher in home: Yes Carbon monox detector in home: Yes Firearms in home: Yes Firearms unloaded and locked: Yes Do you feel safe at home: Yes Do you feel safe in your relationship?: Yes
--- OUTSIDE RECORDS SUMMARY | 2024-05-18 19:10 | XMS_ITS | Encounter Summary ---
Author [place] [address] Care Team Providers Care [facility] Manager Name Role Phone Vicente Lozano DO Primary Care Provider [phone] Reason for Visit * Reason Comments Follow-up Encounter Details Date Type Department Care Team (Late st Contact Info) Description 12/15/2021 2:30 PM EDT Office Visit Dermatology at [address] [id number] Sriram Paul MD [address] [facility] [place] [address] History of SCC (squamous cell carcinoma) of skin Social History Tobacco Use Types Packs/Day Years Used Date Smoking Tobacco: Never Smokeless Tobacco: Never Sex and Gender Information Value Date Recorded Sex Assigned at Not on file Gender Identity Not on file Sexual Orientation Not on file documented as of this encounter Progress Notes * Sriram Paul MD - 12/15/2021 2:30 PM EDT Problem: 1. ??Early repeat skin checkup, new lesion on right dorsal forearm 2. ??History of actinic damage 3. 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 [place] follows up for yearly check. He is desirous of yearly checks. He is not some new lesions on his skin. [place] follows up concerned about a growing lesion on the right dorsal forearm. I last saw him in July. He is referred back to see me again by Dr. Lozano Examination reveals a umbilicated hyperkeratotic nodules with central crust scab consistent with probable SCCA of the KA type. He otherwise has benign examination of the sizable skin. 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 Today site was anesthetized and removed with shave C&D x3 2. After curettage site measured 1 cm in diameter 3. Return to clinic in 6 months for repeat check CC: Vicente Lozano DO documented in this encounter Plan of Treatment Upcoming Encounters Date Type Department Care Team (Late st Contact Info) Description 06/20/2024 10:00 AM EST Office Visit Dermatology at [place] [address] [place] [address] Sriram Paul MD [address] [facility] [place] [address] documented as of this encounter Visit Diagnoses Diagnosis History of SCC (squamous cell carcinoma) of skin Personal history of other malignant neoplasm of skin documented in this encounter Care Teams Regional [facility] Manager Relationship Specialty Start Date End Date Vicente Lozano DO [address] [place] [address] PCP - General Family Medicine 08/14/19 documented as of this encounter
--- OUTSIDE RECORDS SUMMARY | 2024-05-18 19:10 | XMS_ITS | Encounter Summary ---
[place] [address] Care Team Providers Care Disciplinary Hearing Officer Name Role Phone Vicente Lozano DO Primary Care Provider [phone] Encounter Details Date Type Department Care Team (Latest Contact Info) Description 06/19/2022 Travel Social History Tobacco Use Types Packs/Day Years Used Date Smoking Tobacco: Never Smokeless Tobacco: Never Sex and Gender Information Value Date Recorded Sex Assigned at Not on file Gender Identity Not on file Sexual Orientation Not on file documented as of this encounter Plan of Treatment Upcoming Encounters Date Type Department Care Team (Late st Contact Info) Description 06/20/2024 10:00 AM EST Office Visit Dermatology at [address] [phone] Sriram Paul MD 580 [facility], [place] [address] documented as of this encounter Visit Diagnoses Not on filedocumented in this encounter Care Teams Disciplinary Hearing Officer Relationship Specialty Start Date End Date Vicente Lozano DO [facility] [address] PCP - General Family Medicine 08/14/19 documented as of this encounter
--- OUTSIDE RECORDS SUMMARY | 2024-05-18 19:10 | XMS_ITS | Encounter Summary ---
[place] [address] Care Team Providers Care Instrument Assembler Name Role Phone Vicente Lozano DO Primary Care Provider [phone] Reason for Visit * Reason Comments Follow-up Encounter Details Date Type Department Care Team (Late st Contact Info) Description 06/18/2023 9:00 AM EST Office Visit Dermatology at [address] [address] Sriram Paul MD 580 [facility], [facility] DERMATOLOG[facility] [place], [place] [id number] History of SCC (squamous cell carcinoma) of skin; AK (actinic keratosis); Seborrheic keratosis; Verruca vulgaris Social History Tobacco Use Types Packs/Day Years Used Date Smoking Tobacco: Never Smokeless Tobacco: Never Sex and Gender Information Value Date Recorded Sex Assigned at Not on file Gender Identity Not on file Sexual Orientation Not on file documented as of this encounter Progress Notes * Sriram Paul MD - 06/18/2023 9:00 AM EST Problem: 1. Changing lesion on the abdomen 2. History of actinic damage 3. History of growing up [place] a farm 4. 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 5. 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 Patient desirous of every 6 month follow-ups [place] follows up after last being seen in January. He is concerned about a new spot on his abdomen. He is here for his regular 6-month skin checkup. Physical examination reveals a pleasant 77-year-old gentleman with supraclavicular stability lower abdomen just right of midline. He has actinic keratoses on the right forehead and on his left scaphaof the ear. Otherwise examination of the head and the neck the chest and back the hands on forearms thighs and calves is benign. He continues to have numerous seborrheic keratoses on his back. Assessment plan: Actinic keratoses facial 1. LN 2 x 2 applied to each of 2 sites Verruca vulgaris abdomen right of midline 1. LN 2 x 3 applied to site. History of SCCA right dorsal forearm 1. No evidence of recurrence 2. Patient reassured 3. Return to clinic in another 6 months for repeat check CC: Vicente Lozano DO documented in this encounter Plan of Treatment Upcoming Encounters Date Type Department Care Team (Late st Contact Info) Description 06/20/2024 10:00 AM EST Office Visit Dermatology at [address] [address] Sriram Paul MD 580 [facility], [facility] [place] [address] documented as of this encounter Visit Diagnoses Diagnosis History of SCC (squamous cell carcinoma) of skin Personal history of other malignant neoplasm of skin AK (actinic keratosis) Actinic keratosis Seborrheic keratosis Other seborrheic keratosis Verruca vulgaris Viral warts, unspecified documented in this encounter Care Teams Instrument Assembler Relationship Specialty Start Date End Date Vicente Lozano DO [address] [place] [address] PCP - General Family Medicine 08/14/19 documented as of this encounter
--- OUTSIDE RECORDS SUMMARY | 2024-05-18 19:10 | XMS_ITS | Encounter Summary ---
[place] [address] Care Team Providers Care Warehouse Person Name Role Phone Vicente Lozano DO Primary Care Provider [phone] Reason for Visit * Reason Comments Follow-up Encounter Details Date Type Department Care Team (Late st Contact Info) Description 12/17/2023 9:15 AM EDT Office Visit Dermatology at [address] [address] Sriram Paul MD 580 [facility], [facility] [place] [address] History of SCC (squamous cell carcinoma) of skin; Seborrheic keratosis Social History Tobacco Use Types Packs/Day Years Used Date Smoking Tobacco: Never Smokeless Tobacco: Never Sex and Gender Information Value Date Recorded Sex Assigned at Not on file Gender Identity Not on file Sexual Orientation Not on file documented as of this encounter Progress Notes * Sriram Paul MD - 12/17/2023 9:15 AM EDT Problem: 1. Changing lesion on the abdomen 2. History of actinic damage 3. History of growing up on a farm 4. 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 5. 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 Patient desirous of every 6 month follow-ups [place] follows up after last being seen in May. He is here for his regular 6- month skin checkup. Physical examination reveals a pleasant 78-year-old gentleman with who has a painful umbilicated nodule on the left posterior auricle. He has an ovoid 1.5 by 0.7 cm pigmented nodule on the distal right posterior thigh. Otherwise examination of the head and the neck the chest and back the hands on forearms thighs and calves is benign. He continues to have numerous seborrheic keratoses on his back. Assessment plan: SCCa vs BCCa x 2 After curretage both sites measured 1.5 cm in diameter RTC in 6 months for repeat check. CC: Vicente Lozano DO documented in this encounter Plan of Treatment Upcoming Encounters Date Type Department Care Team (Late st Contact Info) Description 06/20/2024 10:00 AM EST Office Visit Dermatology at [place] [address] [place] [address] Sriram Paul MD 580 [facility], [place] [address] documented as of this encounter Visit Diagnoses Diagnosis History of SCC (squamous cell carcinoma) of skin Personal history of other malignant neoplasm of skin Seborrheic keratosis Other seborrheic keratosis documented in this encounter Care Teams Warehouse Person Relationship Specialty Start Date End Date Vicente Lozano DO [address] [place] [address] PCP - General Family Medicine 08/14/19 documented as of this encounter
--- OUTSIDE RECORDS SUMMARY | 2024-05-18 19:10 | XMS_ITS | Encounter Summary ---
Author Organization [facility] Address [address] [place] [address] Care Team Providers Care Peat Shredder Tender Name Role Phone Vicente Mehta MD Primary Care Provider Unav ailable Encounter Details Date Type Department Care Team (Late st Contact Info) Description 01/17/2024 Lab Requisition [facility] Pathology & Laboratory Medicine - [address] [address] Clemente Minor MD [address] [place] [address], [address] [place], [place] [id number] Encounter for screening for malignant neoplasm of colon Social History Tobacco Use Types Packs/Day Years Used Date Smoking Tobacco: Never Assessed Sex and Gender Information Value Date Recorded Sex Assigned at Not on file Legal Sex Male 18:35 EST Gender Identity Not on file Sexual Orientation Not on file documented as of this encounter Plan of Treatment Not on file documented as of this encounter Procedures Procedure Name Priority Date/Time Associated Diagnosis Comments SURGICAL PATHOLOGY Today 01/17/2024 7:45 EDT Encounter for screening for malignant neoplasm of colon documented in this encounter Results * SURGICAL PATHOLOGY (01/17/2024 7:45 EDT) Note to Patient The following pathology results have been interpreted by your pathologist and may be available to you before your health provider has had the opportunity to review them. Please allow time for your provider to receive these results and explore management options, if applicable. 01/19/2024 16:46 EDT [facility] Final Diagnosis A. COLON, POLYP, 85 CM, BIOPSY: - Hyperplastic polyp. B. COLON, POLYP, 80 CM, BIOPSY: - Tubular adenoma. C. COLON, POLYP, 65 CM, BIOPSY: - Tubular adenoma. D. COLON, POLYP, 45 CM, BIOPSY: - Tubular adenoma. 01/19/2024 16:46 [facility] Attestation By the signature below, the attending physician certifies that they have 1) personally conducted a gross and/or microscopic examination of the described specimen(s), and/or personally interpreted the results of laboratory testing of the described specimen(s), and 2) personally rendered or confirmed the above diagnosis. 01/19/2024 16:46 [facility] at 1646 Clinical History Screening colonoscopy, hx of polyps and diarrhea, polyps 01/19/2024 16:46 [facility] Gross Description A. Received in formalin labelled with proper patient identification (initials O, N) and polyp at 85 cm are 2 potter tissue fragments (0.3 x 0.2 x 0.1 cm and 0.3 x 0.2 x 0.2 cm). Entirely submitted in A1. B. Received in formalin labelled with proper patient identification (initials O, N) and polyp at 80 cm is a single potter tissue fragment (0.3 x 0.3 x 0.2 cm). Entirely submitted in B1. C. Received in formalin labelled with proper patient identification (initials O, N) and polyp at 65 cm are 4 potter tissue fragments (0.2 x 0.2 x 0.1 cm to 0.6 x 0.2 x 0.1 cm). Entirely submitted in C1. D. Received in formalin labelled with proper patient identification (initials O, N) and polyp at 45 cm are 3 potter tissue fragments (0.3 x 0.2 x 0.1 cm to 0.4 x 0.1 x 0.1 cm). Entirely submitted in D1. Quin Blank 01/18/2024 9:44 01/19/2024 16:46 [facility] Performing Lab [facility] 01/19/2024 16:46 [facility] Scanned Images 01/19/2024 16:46 [facility] Tissue POLYP OF COLON / Unknown 01/17/2024 7:45 EDT 01/17/2024 21:23 EDT Tissue specimen (specimen) POLYP OF COLON / Unknown 01/17/2024 7:45 EDT 01/17/2024 21:23 EDT Tissue specimen (specimen) POLYP OF COLON / Unknown 01/17/2024 7:45 EDT 01/17/2024 21:23 EDT Tissue specimen (specimen) POLYP OF COLON / Unknown 01/17/2024 7:45 EDT 01/17/2024 21:23 EDT us Clemente Minor MD PATHOLOGY ORDERABLES Final Resu lt [facility] [address] [place] [phone] documented in this encounter Visit Diagnoses Diagnosis Encounter for screening for malignant neoplasm of colon Special screening for malignant neoplasms, colon documented in this encounter Care Teams Peat Shredder Tender Relationship Specialty Start Date End Date Vicente Mehta MD PCP - General 11/29/09 documented as of this encounter
--- OUTSIDE RECORDS SUMMARY | 2024-05-18 19:10 | XMS_ITS | Encounter Summary ---
[place] [address] Care Team Providers Care Rack Pusher Name Role Phone Vicente Lozano DO Primary Care Provider [phone] Reason for Visit * Reason Comments Skin Check Follow-up Encounter Details Date Type Department Care Team (Late st Contact Info) Description 06/19/2022 8:45 AM EST Office Visit Dermatology at [address] [phone] Sriram Paul MD 580 [facility], [facility] [place] [address] History of SCC (squamous cell carcinoma) of skin; AK (actinic keratosis); Seborrheic keratosis, inflamed Social History Tobacco Use Types Packs/Day Years Used Date Smoking Tobacco: Never Smokeless Tobacco: Never Sex and Gender Information Value Date Recorded Sex Assigned at Not on file Gender Identity Not on file Sexual Orientation Not on file documented as of this encounter Progress Notes * Sriram Paul MD - 06/19/2022 8:45 AM EST Problem: 1. ??6-month repeat skin checkup 2. ??History of actinic damage 3. 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 4. 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 He has been doing well and has no particular lesions ofconcern today. He notes some dry spots widely over his skin. Physical examination reveals a pleasant 76-year-old gentleman??who has diffuse actinic keratoses present on the ears the scalp face dorsal hands and forearms. He has a benign examination of the head and the neck the chest the back the hands on forearms thighs and calves. There is no evidence of recurrent SCCA on the right dorsal forearm. He has numerous stucco keratoses present on the arms and legs and seborrheic keratoses on his back. He has an irritated seborrheic it was on his right lower back which often itches. Assessment plan: Actinic keratosis hands and forearms ears and face 1. LN 2 x 2 applied each of 14 sites. 2. No evidence of any other lesions of concern 3. Return to clinic in 6 months for recheck. Patient and I are desirous of every 6 month follow-ups History of nonmelanoma cutaneous malignancy 1. Benign examination today. Pruritic seborrheic keratosis right lower back 1. Patient has many Anshul Ks on back but this particular one is pruritic on a regular daily basis 2. Could consider LN2 for the site. cc: Vicente Lozano DO documented in this encounter Plan of Treatment Upcoming Encounters Date Type Department Care Team (Late st Contact Info) Description 06/20/2024 10:00 AM EST Office Visit Dermatology at [address] [phone] Sriram Paul MD [address] [place] [address], [facility] [place] [address] documented as of this encounter Visit Diagnoses Diagnosis History of SCC (squamous cell carcinoma) of skin Personal history of other malignant neoplasm of skin AK (actinic keratosis) Actinic keratosis Seborrheic keratosis, inflamed Inflamed seborrheic keratosis documented in this encounter Care Teams Rack Pusher Relationship Specialty Start Date End Date Vicente Lozano DO [address] [facility] [place] [address] PCP - General Family Medicine 08/14/19 documented as of this encounter
--- OUTSIDE RECORDS SUMMARY | 2024-05-18 19:10 | XMS_ITS | Encounter Summary ---
Author Organization [facility] Address [address] [place] [address] Care Team Providers Care Technical Sales Representative Name Role Phone Vicente Mehta MD Primary Care Provider Unav ailable Encounter Details Date Type Department Care Team (Late st Contact Info) Description 08/18/2021 Lab Requisition [facility] Pathology & Laboratory Medicine - [address] [phone] Outr Resulting Lab, Provider Social History Tobacco Use Types Packs/Day Years [...] Procedure Name Priority Date/Time Associated Diagnosis Comments HIV 1/2 ANTIGEN AND ANTIBODY, 4TH GENERATION Routine 08/18/2021 7:50 EDT documented in this encounter Results * HIV 1/2 ANTIGEN AND ANTIBODY, 4TH GENERATION (08/18/2021 7:50 EDT) HIV 1 and 2 Antibody/p24 Antigen, 4th Generation Negative Negative 08/19/2021 10:44 EDT [facility] Comment:If acute HIV-1 infec tion is suspected in a high risk patient, submit plasma specimen for HIV-1 RNA quantitation test. Blood VENOUS BLOOD / Unknown 08/18/2021 7:50 EDT 08/18/2021 16:59 EDT Narrative [facility] - 08/19/2021 10:44 EDT Fourth Generation assay performed on the Siemens Centaur XPT. us Provider Outr Resulting Lab IMMUNOLOGY AND SEROL OGY ORDERABLES Final Result [facility] [address] [place] [address] documented in this encounter Visit Diagnoses Not on filedocumented in this encounter Care Teams Technical Sales Representative Relationship Specialty Start Date End Date Vicente Mehta MD PCP - General 11/29/09 documented as of this encounter
--- OUTSIDE RECORDS SUMMARY | 2024-05-18 19:10 | XMS_ITS | Encounter Summary ---
[place] [address] Care Team Providers Care Fitness Management Director Name Role Phone Vicente Lozano DO Primary Care Provider [phone] Encounter Details Date Type Department Care Team (Latest Contact Info) Description 12/17/2022 Travel Social History Tobacco Use Types Packs/Day [...] 10:00 AM EST Office Visit Dermatology at [address] [phone] Sriram Paul MD 580 [facility], [place] [address] documented as of this encounter Visit Diagnoses Not on filedocumented in this encounter Care Teams Fitness Management Director Relationship Specialty Start Date End Date Vicente Lozano DO [facility] [place] [address] PCP - General Family Medicine 08/14/19 documented as of this encounter
--- OUTSIDE RECORDS SUMMARY | 2024-05-18 19:10 | XMS_ITS | Encounter Summary ---
[place] [address] Care Team Providers Care Programmer Engineering And Scientific Name Role Phone Vicente Lozano DO Primary Care Provider [phone] Encounter Details Date Type Department Care Team (Latest Contact Info) Description 06/18/2023 Travel Social History Tobacco Use Types Packs/Day [...] 10:00 AM EST Office Visit Dermatology at [address] [phone] Sriram Paul MD 580 [facility], [place] [address] documented as of this encounter Visit Diagnoses Not on filedocumented in this encounter Care Teams Programmer Engineering And Scientific Relationship Specialty Start Date End Date Vicente Lozano DO [facility] [place] [address] PCP - General Family Medicine 08/14/19 documented as of this encounter
--- OUTSIDE RECORDS SUMMARY | 2024-05-18 19:10 | XMS_ITS | Encounter Summary ---
[place] [address] Care Team Providers Care Meal Cooker Name Role Phone Vicente Lozano DO Primary Care Provider [phone] Encounter Details Date Type Department Care Team (Late st Contact Info) Description 12/27/2023 Telephone Dermatology at [address] [phone] Shani Cancino RN Social History Tobacco Use Types Packs/Day Years Used Date Smoking Tobacco: Never Smokeless Tobacco: Never Sex and Gender Information Value Date Recorded Sex Assigned at Not on file Gender Identity Not on file Sexual Orientation Not on file documented as of this encounter Miscellaneous Notes * Telephone Encounter - Shani Cancino RN - 12/27/2023 9:49 AM EDT Patient called and informed of his pathology results. Specimen A: Patient had a shave biopsy ED&C on left posterior auriculae on 12/17/2023. Diagnosis: Squamous cell carcinoma. Per Dr. Paul's recommendation no further treatment is needed and patient to return to the clinic in 6 months for a repeat check. Patient does have a follow up appointment on 06/20/2024. Specimen B: Patient had a second shave biopsy ED&C on right posterior thigh 12/17/2023. Diagnosis pending additional testing at this time. Patient informed and he stated that he understood. Patient informed when the Specimen B biopsy on his posterior thigh results come back we would call him. Patient reminded of his follow-up appointment on 06/20/2024 documented in this encounter Plan of Treatment Upcoming Encounters Date Type Department Care Team (Late st Contact Info) Description 06/20/2024 10:00 AM EST Office Visit Dermatology at [place] [address] [facility] [place] [address] Sriram Paul MD [address] [place] [address] RD, CHARLIE [place] [address] documented as of this encounter Visit Diagnoses Not on filedocumented in this encounter Care Teams Meal Cooker Relationship Specialty Start Date End Date Vicente Lozano DO [address] [place] [address] PCP - General Family Medicine 08/14/19 documented as of this encounter
--- OUTSIDE RECORDS SUMMARY | 2024-05-18 19:10 | XMS_ITS | Encounter Summary ---
Author Organization [facility] Address [address] [place] [address] Care Team Providers Care Boom Crane Operator Name Role Phone Vicente Mehta MD Primary Care Provider Unav ailable Encounter Details Date Type Department Care Team (Late st Contact Info) Description 02/11/2015 Results Only [facility] [phone] Siri Yusuf MD [address] [place] [address] [address] [place], [place] [phone] Social History Tobacco Use Types Packs/Day Years [...] Priority Date/Time Associated Diagnosis Comments SURGICAL PATHOLOGY Routine 02/11/2015 17 :26 EDT documented in this encounter Results * SURGICAL PATHOLOGY (02/11/2015 17:26 EDT) Pathology Report: SURGICAL PATHOLOGY REPORT Reports generated via electronic interface contain original data; however they are lacking the format of the original report. Caution should be taken when reading/interpret ing unformatted reports. Name: ? BECCA MORAN ? Accession #: ? [id number] ? : ? 1945 (Age: 69) ??M ? Collect Date: ? 02/11/2015 ? Location: ? [facility] ? Receive Date: ? 02/11/2015 ? Provider: SIRI YUSUF MD Copy to: VICENTE MEHTA MD ? Final Pathologic Diagnosis: COLON, TRANSVERSE POLYP, BIOPSY: - ??Tubular adenoma. Document reviewed and electronically signed by: Cassie Henao MD Report ??Date: 02/12/2015 18:47 By the signature above, the attending physician certifies that he/she has personally conducted a gross and/or microscopic examination of the described specimens and rendered or confirmed the above diagnosis. Specimen(s) Received: Transverse colon polyp Clinical History: H/O colon adenomas Gross Description: ? Received in formalin labelled with proper patient identification (initials O, N) and 1. transverse colon polyp is a single light potter tissue fragment (0.3 x 0.2 x 0.2 cm). Submitted intact in 1. Elia Dominguez 02/12/2015 8:20 AM End of Report [facility] 02/11/2015 17:2 6 EDT 02/11/2015 17:26 EDT us Siri Yusuf MD PATHOLOGY ORDERABLES Fin al Result [facility] [address] [place] [address] documented in this encounter Visit Diagnoses Not on filedocumented in this encounter Care Teams Boom Crane Operator Relationship Specialty Start Date End Date Vicente Mehta MD PCP - General 11/29/09 documented as of this encounter
--- OUTSIDE RECORDS SUMMARY | 2024-05-18 19:10 | XMS_ITS | Encounter Summary ---
Author Organization [facility] [place] [address] Care Team Providers Care Naturopathic Oncology Provider Name Role Phone Vicente Lozano DO Primary Care Provider [phone] Encounter Details Date Type Department Care Team (Latest Contact Info) Description 12/17/2023 7:12 AM EDT - 12/17/2023 9:35 PM EDT [place] [address] Discharge Disposition: Home Social History Tobacco Use Types Packs/Day Years Used Date Smoking Tobacco: Never Smokeless Tobacco: Never Sex and Gender Information Value Date Recorded Sex Assigned at Not on file Gender Identity Not on file Sexual Orientation Not on file documented as of this encounter Medications at Time of Discharge Medication Sig Dispensed Refills Start Date End Date fluorometholone (FML) 0.1 % Drops, Suspension SHAKE LIQUID AND INSTILL 1 DROP IN LEFT EYE TWICE DAILY 08/23/2023 fexofenadine (Viry) 60 mg Tablet Take 60 mg by mouth daily. 03/19/2021 meclizine (Antivert) 12.5 mg Tablet TAKE 2 TABLETS BY MOUTH TWICE DAILY NEEDED FOR MOTION SICKNESS FOR VERTIGO 05/10/2020 metoprolol succinate XL (Toprol-XL) 25 mg Tablet Sustained Release 24 hr TAKE 1 TABLET BY MOUTH DAILY 07/18/2019 rosuvastatin (Crestor) 10 mg Tablet TAKE 1 TABLET BY MOUTH ONCE DAILY 2019 aspirin 81 mg EC tablet Take 81 mg by mouth daily. multivitamin (THERAGRAN) tablet Take 1 tablet by mouth daily. lisinopril (PRINIVIL;ZESTRIL) 10 mg tablet 10MG, PO, Once daily 04/21/2005 nitroGLYcerin (NITROSTAT) 0.4 mg SL tablet 0.4MG, Sublingual, PRN 04/20/2005 documented as of this encounter Plan of Treatment Upcoming Encounters Date Type Department Care Team (Late st Contact Info) Description 06/20/2024 10:00 AM EST Office Visit Dermatology at [place] [address] [facility] [place] [address] Sriram Paul MD [address], CHAR[place] [address] documented as of this encounter Visit Diagnoses Not on filedocumented in this encounter Care Teams Naturopathic Oncology Provider Relationship Specialty Start Date End Date Vicente Lozano DO [address] [place] [address] PCP - General Family Medicine 08/14/19 documented as of this encounter
--- OUTSIDE RECORDS SUMMARY | 2024-05-18 19:10 | XMS_ITS | Encounter Summary ---
Author Organization [facility] [place] [address] Care Team Providers Care Scraper Meat Name Role Phone Vicente Lozano DO Primary Care Provider [phone] Encounter Details Date Type Department Care Team (Latest Contact Info) Description 12/17/2023 9:36 PM EDT - 12/17/2023 11:59 PM EDT [place] [id number] Discharge Disposition: Home Social History Tobacco Use [...] 10:00 AM EST Office Visit Dermatology at [place] [address] [place] [address] Sriram Paul MD [address], [place] [address] documented as of this encounter Procedures Procedure Name Priority Date/Time Associated Diagnosis Comments [facility] Routine 12/17/2023 9:40 AM EDT SURGICAL PATHOLOGY REPORT Routine 12/17/2023 9:40 AM EDT documented in this encounter Results * [facility] (12/17/2023 9:40 AM EDT) [facility] Sendout See Note [facility] Comment: The ordered test is: [id number] Test performed by: [employer] [employer], [address] [place] [address] , [place] [address] See Scanned Report. Other Other / Unknown 12/17/2023 9 :40 AM EDT 12/28/2023 3:08 PM EDT Daniele Alex MD LAB SEND OUT ORDERAB LES [facility] [place] [address] * Surgical Pathology Report (12/17/2023 9:40 AM EDT) Final Diagnosis [id number] ? Location: OPW The signing pathologist has (i) examined the relevant preparation(s) for the specimen(s) and (ii) rendered or confirmed the diagnosis(es). . ? Addendum ADDENDUM DISCUSSION B. 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 It appears to be situated in the dermis, but abuts the specimen edges. Unlike conventional cutaneous fibrous histiocytomas, this lesion shows markedly bizarre nuclear atypia and unusually dense, spindled architecture. Puente described a propensity for recurrence in rare lesions displaying these abnormal findings (PMID: [id number]); therefore, care should be given to ensure that it has been completely removed. Given its unusual appearance, the slides were shared with two soft tissue pathologists and an additional dermatopathologist. Our consensus is that this lesion shows no evidence of epithelial, melanocytic, or vascular differentiation. We entertained a broader differential diagnosis of fibrohistiocytic and fibroblastic proliferations, but the dermal localization, rough circumscription, sparse mitotic activity, and ancillary test results provide the most support for the above interpretation. SUMMARY OF TESTING IMMUNOHISTOCHEMISTRY STUDIES Block: ?B2 Fixative: ?? Formalin ANTIBODY ?RESULT/COMMENT Sox10 ? Negative CK AE1/AE3 ??Negative CK LZX855 ?? Negative P63 ? Negative CD34 ?Negative ERG ? Negative HHV8 ?Negative Desmin ?Negative SMA ? Equivocal (focally positive) D5F3 ?Negative Njsuwf15i ?? Positive PU.1 ?Positive in background cells FISH STUDIES (performed at [facility], see report [id number]) Block: ?B2 Result: Negative for rearrangement of TGFBR3 locus. Negative for rearrangement of OGA locus. Electronically signed by: ?Isai VIDAL, Daniele Lunsford Verified: ??01/11/2024 14:08 ??Dermatopathologist Performed at: ??-[facility], [place] [address] Zinc Miner: Salbador Calvert MD, FCAP, ??CLIA Certificate: [id number] . ?Surgical Pathology DIAGNOSIS A. 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 Right posterior thigh, skin shave biopsy ED&C: - Diagnosis pending additional testing ?? (see discussion) Electronically signed by: ?Isai VIDAL, Daniele Lunsford Verified: ??12/24/2023 15:08 ??Dermatopathologist Performed at: ??-[facility] [place], [place] [address] Zinc Miner: Salbador Calvert MD, FCAP, ??CLIA Certificate: [id number] DISCUSSION A diagnosis for the right posterior thigh lesion will follow in an addendum report in approximately two weeks. Additional ancillary testing is being performed to establish the diagnosis. ?? This case was also reviewed by an intradepartmental soft tissue pathologist for consensus on test selection. ?Dr. Alex provided case information in a message to Dr. Paul at 1507 on 12/24/2023. ADDITIONAL STUDIES B. Lesional cells are negative for Sox10, AE1/AE3, HHV8, ERG, desmin, and CD34. Several cells within the lesion express PU.1 and Gdcraf47w. ? Multiple step-leveled sections are examined. SPECIMEN(S) SUBMITTED A - L posterior auricle, ED&C B - R Posterior thigh, ED&C Referring Identifier: ?(not provided) CLINICAL INFORMATION Pearly papules treated with shaved C and D BCCA/SCCA SPECIMEN PROCESSING A - Labeled/Fixative: A, formalin. Quantity/Size: ??Single, 1.0 x 0.8 x 0.2 cm. Tissue Description: Shave of a potter-pink scaly skin papule. Sections/Processing: Inked, quadrisected and entirely submitted in 1 cassette labeled A1. B - Labeled/Fixative: B, formalin. Quantity/Size: ??Single, 1.2 x 1.0 x 0.3 cm. Tissue Description: Shave of white skin with a 0.9 x 0.8 cm brown-red papule. Sections/Processing: Inked, quadrisected and entirely submitted in 2 cassettes as follows: ?B1: ??Tips ?B2: ??Body ??SM 01/11/2024 2:08 PM EDT [facility] SPECIMEN FROM SKIN / Unknown 12/17/2023 9:40 AM EDT 12/17/2023 9:40 AM EDT SPECIMEN FROM SKIN / Unknown 12/17/2023 9:40 AM EDT 12/17/2023 9:40 AM EDT Sriram Paul MD PATHOLOGY/CYTOLOGY O FLYERAGERMAN Performing Organization Address City/State/[facility] Co de Phone Number [facility] [place] [phone] documented in this encounter Visit Diagnoses Not on filedocumented in this encounter Care Teams Scraper Meat Relationship Specialty Start Date End Date Vicente Lozano DO [address] [place] [address] PCP - General Family Medicine 08/14/19 documented as of this encounter
--- OUTSIDE RECORDS SUMMARY | 2024-05-18 19:10 | XMS_ITS | Encounter Summary ---
Author Organization [facility] Address [address] [place] [address] Care Team Providers Care Clinic Receptionist Name Role Phone Vicente Mehta MD Primary Care Provider Unav ailable Encounter Details Date Type Department Care Team (Late st Contact Info) Description 08/13/[address] [facility] Pathology & Laboratory Medicine - [address] [address] Neo Galindo MD [address] [place] [address] [address] [place], [place] [id number] Encounter for other general examination Social History Tobacco Use Types Packs/Day Years [...] Date/Time Associated Diagnosis Comments SURGICAL PATHOLOGY Today 08/12/2020 11 :52 EDT Encounter for other general examination documented in this encounter Results * SURGICAL PATHOLOGY (08/12/2020 11:52 EDT) Final Diagnosis A. TRANSVERSE COLON, BIOPSY: - Tubulovillous adenoma B. DESCENDING COLON, BIOPSY: - Sessile serrated adenoma C. SIGMOID COLON, BIOPSY: - Colonic mucosa without significant pathologic abnormality 08/14/2020 14:52 EDT [facility] Attestation By the signature below, the attending physician certifies that they have 1) personally conducted a gross and/or microscopic examination of the described specimen(s), and/or personally interpreted the results of laboratory testing of the described specimen(s), and 2) personally rendered or confirmed the above diagnosis. 08/14/2020 14:52 EDT [facility] at 1452 Clinical History H/O colon polyps 08/14/2020 14:52 EDT [facility] Gross Description A. Received in formalin labelled with proper patient identification (initials O, N) and 1. Transverse colon polyps x3 are 8 potter-pink tissue fragments (0.1 x 0.1 x 0.1 cm to 1.0 x 0.3 x 0.1 cm). Submitted in toto in A1 and A2. B. Received in formalin labelled with proper patient identification (initials O, N) and 2. Descending colon polyp are 2 potter-pink tissue fragments (0.3 x 0.2 x 0.1 cm and 0.4 x 0.4 x 0.1 cm). Submitted in toto in B1. C. Received in formalin labelled with proper patient identification (initials O, N) and 3. Sigmoid polyp is a potter-brown tissue (0.6 x 0.3 x 0.2 cm). Submitted in toto in C1. MACIE LOWRY(ASCP) 08/13/2020 8:15 08/14/2020 14:52 EDT [facility] Performing Lab [facility] 08/14/2020 14:52 T [facility] Scanned Images 08/14/2020 14:52 T [facility] Tissue POLYP OF COLON / Unknown 08/12/2020 11:52 EDT 08/13/2020 7:45 EDT Tissue specimen (specimen) POLYP OF COLON / Unknown 08/12/2020 11:52 EDT 08/13/2020 7:45 EDT Tissue specimen (specimen) POLYP OF COLON / Unknown 08/12/2020 11:52 EDT 08/13/2020 7:45 EDT Neo Galindo MD PATHOLOGY ORDERABLES Fin al Result [facility] [address] [place] [address] documented in this encounter Visit Diagnoses Diagnosis Encounter for other general examination documented in this encounter Care Teams Clinic Receptionist Relationship Specialty Start Date End Date Vicente Mehta MD PCP - General 11/29/09 documented as of this encounter
--- OUTSIDE RECORDS SUMMARY | 2024-05-18 19:10 | XMS_ITS | Encounter Summary ---
[place] [address] Care Team Providers Care Lab Manager Name Role Phone Vicente Mehta MD Primary Care Provider [phone] Reason for Visit * Reason Comments Skin Check Encounter Details Date Type Department Care Team (Late st Contact Info) Description 07/31/2013 10:30 AM EST Office Visit Dermatology at [address] [address] Sriram Paul MD [address] [facility] [place] [address] [place] (actinic keratosis) (Primary Dx); Other seborrheic keratosis Social History Tobacco Use Types Packs/Day Years Used Date Smoking Tobacco: Never Sex and Gender Information Value Date Recorded Sex Assigned at Not on file Gender Identity Not on file Sexual Orientation Not on file documented as of this encounter Progress Notes * Sriram Paul MD - 07/31/2013 10:59 AM EST Problem: Repeat skin checkup. [place] follows up after last being seen in April of 2012. He has been doing well. He has noticed some new lesions of concern. Dr. Mehta recently saw him and thought he should be checked for some actinics on his forehead. 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 Physical examination reveals actinics present on the right upper forehead and also on the dorsal hands. A total of four sites are noted today. Otherwise he has numerous seborrheic keratoses on his back and some stucco keratoses on his forearms. Examination of the head and the neck, the chest, the back, hands, arms, forearms is benign. Assessment and Plan: 1. Actinic keratoses. a. LN2 times two applied to each of four sites. b. Recommend that I see him again in another two years for repeat check. Return reminder two years. 2. Seborrheic keratoses. a. Patient reassured about benign seborrheic keratoses. b. No treatment necessary. Return to clinic two years. COPY: Vicente Mehta M.D. documented in this encounter Plan of Treatment Upcoming Encounters Date Type Department Care Team (Late st Contact Info) Description 06/20/2024 10:00 AM EST Office Visit Dermatology at [place] [address] [place] [address] Sriram Paul MD [address] [facility] [place] [address] documented as of this encounter Visit Diagnoses Diagnosis [place] (actinic keratosis)- Primary Actinic keratosis Other seborrheic keratosis documented in this encounter Care Teams Lab Manager Relationship Specialty Start Date End Date Vicente Mehta MD [address] [place] [address] PCP - General 04/22/10 08/13/19 documented as of this encounter
--- OUTSIDE RECORDS SUMMARY | 2024-05-18 19:10 | XMS_ITS | Encounter Summary ---
[place] [address] Care Team Providers Care No Experience Name Role Phone Vicente Lozano DO Primary Care Provider [phone] Encounter Details Date Type Department Care Team (Late st Contact Info) Description 09/08/2021 Telephone Dermatology at [address] [address] Shani Cancino RN Social History Tobacco Use Types Packs/Day Years Used Date Smoking Tobacco: Never Smokeless Tobacco: Never Sex and Gender Information Value Date Recorded Sex Assigned at Not on file Gender Identity Not on file Sexual Orientation Not on file documented as of this encounter Miscellaneous Notes * Telephone Encounter - Shani Cancino RN - 09/08/2021 8:39 AM EDT Pt had a shave biopsy on 08/29/2021. Pt called with the results. Shave biopsy right lateral forehead Diagnosis was Seborrheic Keratosis. Per Dr. Paul no further treatment is needed. Pt. Stated that he understood. Pt does have a follow up appointment on 09/03/2022 and he was reminded of his appointment. Pt stated no questions or concerns at this time. documented in this encounter Plan of Treatment Upcoming Encounters Date Type Department Care Team (Late st Contact Info) Description 06/20/2024 10:00 AM EST Office Visit Dermatology at [address] [place] [address] Sriram Paul MD [address], [place] [address] documented as of this encounter Visit Diagnoses Not on filedocumented in this encounter Care Teams No Experience Relationship Specialty Start Date End Date Vicente Lozano DO [address] [place] [address] PCP - General Family Medicine 08/14/19 documented as of this encounter
--- OUTSIDE RECORDS SUMMARY | 2024-05-18 19:10 | XMS_ITS | Encounter Summary ---
Author Organization [facility] Address [address] [place] [address] Care Team Providers Care Psychologist Clinical Name Role Phone Vicente Mehta MD Primary Care Provider Unav ailable Encounter Details Date Type Department Care Team (Latest Contact Info) Description 02/11/2015 9:49 EDT - 02/11/2015 23:59 EDT Hospital Encounter [address] [address] Unknown, Provider, MD Discharge Disposition: Home or Self Care Social History Tobacco Use Types Packs/Day Years Used Date Smoking Tobacco: Never Assessed Sex and Gender Information Value Date Recorded Sex Assigned at Not on file Legal Sex Male 18:35 EST Gender Identity Not on file Sexual Orientation Not on file documented as of this encounter Discharge Disposition Disposition Code Departure Means Destination Home or Self Senior Living documented in this encounter Plan of Treatment Not on file documented as of this encounter Visit Diagnoses Not on filedocumented in this encounter Care Teams Psychologist Clinical Relationship Specialty Start Date End Date Vicente Mehta MD PCP - General 11/29/09 documented as of this encounter
--- OUTSIDE RECORDS SUMMARY | 2024-05-18 19:10 | XMS_ITS | Referral Summary ---
Author Organization [facility] Address [address] [place] [address] Care Team Providers Care Mortar Worker Name Role Phone Vicente Mehta MD Primary Care Provider Unav ailable Social History Tobacco Use Types Packs/Day Years Used Date Smoking Tobacco: Never Assessed Sex and Gender Information Value Date Recorded Sex Assigned at Not on file Legal Sex Male 18:35 EST Gender Identity Not on file Sexual Orientation Not on file Plan of Treatment Not on file Procedures Procedure Name Priority Date/Time Associated Diagnosis Comments HEPATITIS C AB W REFLEX TO HCV RNA BY PCR Routine 08/18/2021 7:50 EDT from Last 3 Months or Most Recently Relevant to Health Maintenance Results * HEPATITIS C AB W REFLEX TO HCV RNA BY PCR (08/18/2021 7:50 EDT) Hep C Antibody Negative Negative 08/19/2021 10:24 EDT [facility] Blood VENOUS BLOOD / Unknown 08/18/2021 7:50 EDT 08/18/2021 16:59 EDT us Provider Outr Resulting Lab CHEMISTRY & BLOOD GA S ORDERABLES Final Result [facility] [address] [place] [address] from Last 3 Months or Most Recently Relevant to Health Maintenance Insurance BCBS [employer] MEDICARE [employer] Care Teams Mortar Worker Relationship Specialty Start Date End Date Vicente Mehta MD PCP - General 11/29/09
--- OUTSIDE RECORDS SUMMARY | 2024-05-18 19:10 | XMS_ITS | Encounter Summary ---
Author Organization [facility] Address [address] [place] [address] Care Team Providers Care Mussel Opener Name Role Phone Vicente Mehta MD Primary Care Provider Unav ailable Encounter Details Date Type Department Care Team (Late st Contact Info) Description 10/04/2006 Results Only [facility] [address] [place] [address] Kd Cee MD [address] [place] [address] Social History Tobacco Use Types Packs/Day Years [...] Date/Time Associated Diagnosis Comments SURGICAL PATHOLOGY Routine 10/04/2006 0:00 EDT documented in this encounter Results * SURGICAL PATHOLOGY (10/04/2006 0:00 EDT) Pathology Report: SURGICAL PATHOLOGY REPORT Reports generated via electronic interface contain original data; however they are lacking the format of the original report. Caution should be taken when reading/interpreti ng unformatted reports. Name: ? BECCA MORAN ? Accession #: ? [id number] ? : ? 1945 (Age: 61) ??M ? Collect Date: ? 10/04/2006 ? Location: ? [facility] ? Receive Date: ? 10/04/2006 ? Provider: KD CEE MD Copy to: VICENTE MEHTA MD ? Final Pathologic Diagnosis: A. ?Colon, transverse, polyp, biopsy: 1. ?Tubular adenoma. 2. ? No high grade dysplasia or carcinoma identified. B. ?Colon, descending, polyp, biopsy: 1. ?Hyperplastic polyp. 2. ? No adenomatous mucosa identified. Document reviewed and electronically signed by: MADYSON BECKER MD Report ??Date: 10/05/2006 21:57 By the signature above, the attending physician certifies that he/she has personally conducted a gross and/or microscopic examination of the described specimens and rendered or confirmed the above diagnosis. Specimen(s) Received: A. ?Transverse colon polyp (#1) B. ? Descending colon polyp (#2) Clinical History: ? Hx polyps Gross Description: ? Received in Hollande's fixative labelled [place] and transverse colon polyp is 0.2 x 0.1 x 0.1 cm potter-pink tissue submitted intact as (A). Received in Hollande's fixative labelled [place] and descending colon polyp is a 0.2 x 0.1 x 0.1 cm potter-pink tissue submitted intact as (B). ??(Karla Coyle)/[facility] End of Report [facility] 10/04/2006 10/04/2006 15: 27 EDT us Kd Cee MD PATHOLOGY ORDERABLES Final Resul t [facility] [address] [place] [address] documented in this encounter Visit Diagnoses Not on filedocumented in this encounter Care Teams Mussel Opener Relationship Specialty Start Date End Date Vicente Mehta MD PCP - General 11/29/09 documented as of this encounter
--- OUTSIDE RECORDS SUMMARY | 2024-05-18 19:10 | XMS_ITS | Encounter Summary ---
[place] [address] Care Team Providers Care Gun Synchronizer Name Role Phone Vicente Lozano DO Primary Care Provider [phone] Encounter Details Date Type Department Care Team (Latest Contact Info) Description 12/17/2023 Travel Social History Tobacco Use Types Packs/Day [...] 10:00 AM EST Office Visit Dermatology at [address] [address] Sriram Paul MD [address] [facility] [place] [address] documented as of this encounter Visit Diagnoses Not on filedocumented in this encounter Care Teams Gun Synchronizer Relationship Specialty Start Date End Date Vicente Lozano DO [facility] [place] [place] [address] PCP - General Family Medicine 08/14/19 documented as of this encounter
--- OUTSIDE RECORDS SUMMARY | 2024-05-18 19:10 | XMS_ITS | Encounter Summary ---
[place] [address] Care Team Providers Care Multifocal Button Grinder Name Role Phone Vicente Lozano DO Primary Care Provider [phone] Reason for Visit * Reason Comments Skin Check Encounter Details Date Type Department Care Team (Late st Contact Info) Description 08/14/2019 8:45 AM EDT Office Visit Dermatology at [address] [address] Sriram Paul MD 580 [facility], [facility] DERMATOLOGY [place], [place] [id number] [place] (actinic keratosis) Social History Tobacco Use Types Packs/Day Years Used Date Smoking Tobacco: Never Smokeless Tobacco: Never Sex and Gender Information Value Date Recorded Sex Assigned at Not on file Gender Identity Not on file Sexual Orientation Not on file documented as of this encounter Progress Notes * Sriram Paul MD - 08/14/2019 8:45 AM EDT Problem: 1. Repeat skin checkup 2. History of actinic damage 3. 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 [place] follows up after last being seen some 4 years ago. He is doing well. He is noted some new lesions on his face and this concerned him. He wonders whether or not he should be seen more frequently. Physical examination reveals a pleasant 74-year-old gentleman who is very fair skin has type II White pigmentation and diffuse actinic damage over the face with 15 actinic's there and also on the dorsal hands. He has numerous seborrheic keratoses over his back. Assessment and plan: Actinic keratoses 1. LN2 x2 applied each of 15 sites 2. Recommend I see him again now in another 1 year for repeat check 3. Discussed with patient that see any malignant lesions today. Seborrheic keratoses back 1. Patient reassured. 2. No treatment necessary Cc: Vicente Meza MD documented in this encounter Plan of Treatment Upcoming Encounters Date Type Department Care Team (Late st Contact Info) Description 06/20/2024 10:00 AM EST Office Visit Dermatology at [place] [address] [place] [address] Sriram Paul MD 580 [facility], [place] [address] documented as of this encounter Visit Diagnoses Diagnosis AK (actinic keratosis) Actinic keratosis documented in this encounter Care Teams Multifocal Button Grinder Relationship Specialty Start Date End Date Vicente Lozano DO [address] [place] [address] PCP - General Family Medicine 08/14/19 documented as of this encounter
--- OUTSIDE RECORDS SUMMARY | 2024-05-18 19:10 | XMS_ITS | Encounter Summary ---
[place] [address] Care Team Providers Care Rehab Assistant Name Role Phone Vicente Lozano DO Primary Care Provider [phone] Reason for Visit * Reason Comments Follow-up Encounter Details Date Type Department Care Team (Late st Contact Info) Description 12/17/2022 8:45 AM EDT Office Visit Dermatology at [address] [address] Sriram Paul MD 580 [facility], [facility] DERMATOLOGY [place], [place] [id number] [place] (actinic keratosis); History of SCC (squamous cell carcinoma) of skin; Seborrheic keratosis Social History Tobacco Use Types Packs/Day Years Used Date Smoking Tobacco: Never Smokeless Tobacco: Never Sex and Gender Information Value Date Recorded Sex Assigned at Not on file Gender Identity Not on file Sexual Orientation Not on file documented as of this encounter Progress Notes * Sriram Paul MD - 12/17/2022 8:45 AM EDT Problem: 1. 6-month repeat skin checkup 2. History of actinic damage 3. History of growing up on a farm 4. 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 5. 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 Patient desirous of every 6 month follow-ups [place] follows up for a 6-month skin checkup. He has been doing well and has no particular lesions ofconcern today. He notes some dry spots widely over his skin. Physical examination reveals a pleasant 77-year-old gentleman who has 7 actinic keratoses present on the ears the scalp face dorsal hands and forearms. He has a benign examination of the head and theneck the chest the back the hands on forearms thighs and calves. There is no evidence of recurrent SCCA on the right dorsal forearm. He has numerous stucco keratoses present on the arms and legs and seborrheic keratoses on his back. He has an irritated seborrheic it was on his left upper back whichoften itches. Assessment plan: Actinic keratosis hands and forearms ears and face 1. LN 2 x 2 applied each of 7 sites. 2. No evidence of any other lesions of concern 3. Return to clinic in 6 months for recheck. Patient and I are desirous of every 6 month follow-ups History of nonmelanoma cutaneous malignancy 1. Benign examination today. Pruritic seborrheic keratosis left upper back 1. Patient has many Anshul Ks on back but this particular one is pruritic on a regular daily basis 2. Could consider LN2 for the site. cc: Vicente Lozano DO documented in this encounter Plan of Treatment Upcoming Encounters Date Type Department Care Team (Late st Contact Info) Description 06/20/2024 10:00 AM EST Office Visit Dermatology at [address] [address] Sriram Paul MD [address] [place] [address], [facility] [address] documented as of this encounter Visit Diagnoses Diagnosis AK (actinic keratosis) Actinic keratosis History of SCC (squamous cell carcinoma) of skin Personal history of other malignant neoplasm of skin Seborrheic keratosis Other seborrheic keratosis documented in this encounter Care Teams Rehab Assistant Relationship Specialty Start Date End Date Vicente Lozano DO [address] [place] [address] PCP - General Family Medicine 08/14/19 documented as of this encounter
--- OUTSIDE RECORDS SUMMARY | 2024-05-18 19:10 | XMS_ITS | Encounter Summary ---
[place] [address] Care Team Providers Care Rear Load Truck Driver Name Role Phone Vicente Lozano DO Primary Care Provider [phone] Encounter Details Date Type Department Care Team (Late Contact Info) Description 12/19/2021 Telephone Dermatology at [address] [address] Yamilet Varghese LPN Social History Tobacco Use Types Packs/Day Years Used Date Smoking Tobacco: Never Smokeless Tobacco: Never Sex and Gender Information Value Date Recorded Sex Assigned at Not on file Gender Identity Not on file Sexual Orientation Not on file documented as of this encounter Miscellaneous Notes * Telephone Encounter - Yamilet Varghese LPN - 12/19/2021 7:54 AM EDT 12/15/21 right dorsal forearm skin shave biopsy Dx: SCCa, no further treatment necessary Return to clinic in 6 months for skin check Reviewed biopsy results and Dr. Aguilera recommendation with patient. He voiced understanding. documented in this encounter Plan of Treatment Upcoming Encounters Date Type Department Care Team (Late Contact Info) Description 06/20/2024 10:00 AM EST Office Visit Dermatology at [address] [address] Sriram Paul MD [address] [place] [address], [facility] [place] [address] documented as of this encounter Visit Diagnoses Not on filedocumented in this encounter Care Teams Rear Load Truck Driver Relationship Specialty Start Date End Date Vicente Lozano DO [address] [place] [address] PCP - General Family Medicine 08/14/19 documented as of this encounter
--- OUTSIDE RECORDS SUMMARY | 2024-05-18 19:10 | XMS_ITS | Encounter Summary ---
Author Organization [facility] Address [address] [place] [id number] Care Team Providers Care Utility Agent Name Role Phone Vicente Mehta MD Primary Care Provider Unav ailable Encounter Details Date Type Department Care Team (Late st Contact Info) Description 08/18/2021 Lab Requisition [facility] Medicine - [address] [id number] Outr Resulting Lab, Provider Social History Tobacco [...] RNA BY PCR Routine 08/18/2021 7:50 EDT documented in this encounter Results * HEPATITIS C AB W REFLEX TO HCV RNA BY PCR (08/18/2021 7:50 EDT) Hep C Antibody Negative Negative 08/19/2021 10:24 EDT [facility] Blood VENOUS BLOOD / Unknown 08/18/2021 7:50 EDT 08/18/2021 16:59 EDT us Provider Outr Resulting Lab CHEMISTRY & BLOOD GA S ORDERABLES Final Result [facility] [address] [place] [address] documented in this encounter Visit Diagnoses Not on filedocumented in this encounter Care Teams Utility Agent Relationship Specialty Start Date End Date Vicente Mehta MD PCP - General 11/29/09 documented as of this encounter
--- OUTSIDE RECORDS SUMMARY | 2024-05-18 19:10 | XMS_ITS | Encounter Summary ---
[place] [address] Care Team Providers Care Head Buyer Tobacco Name Role Phone Vicente Lozano DO Primary Care Provider [phone] Encounter Details Date Type Department Care Team (Late st Contact Info) Description 03/04/2023 Telephone Dermatology at [address] [address] Yamilet Varghese LPN Social History Tobacco Use Types Packs/Day Years Used Date Smoking Tobacco: Never Smokeless Tobacco: Never Sex and Gender Information Value Date Recorded Sex Assigned at Not on file Gender Identity Not on file Sexual Orientation Not on file documented as of this encounter Miscellaneous Notes * Telephone Encounter - Yamilet Varghese LPN - 03/04/2023 8:36 AM EDT 02/19/23 Left medial calf, skin shave biopsy Bx: Eczema No evidence of skin cancer seen Recommend use of moisturizing cream to soothe the area, return to clinic on 06/18/23 for repeat skincheck up Reviewed biopsy results and Dr. Aguilera recommendations with patient. He voiced understanding. documented in this encounter Plan of Treatment Upcoming Encounters Date Type Department Care Team (Late st Contact Info) Description 06/20/2024 10:00 AM EST Office Visit Dermatology at [address] [address] Sriram Paul MD [address] [address], [place] [address] documented as of this encounter Visit Diagnoses Not on filedocumented in this encounter Care Teams Head Buyer Tobacco Relationship Specialty Start Date End Date Vicente Lozano DO [address] [place] [address] PCP - General Family Medicine 08/14/19 documented as of this encounter
--- OUTSIDE RECORDS SUMMARY | 2024-05-18 19:10 | XMS_ITS | Encounter Summary ---
[place] [address] Care Team Providers Care Coke Still Cleaner Name Role Phone Vicente Lozano DO Primary Care Provider [phone] Encounter Details Date Type Department Care Team (Latest Contact Info) Description 02/19/2023 Travel Social History Tobacco Use Types Packs/Day [...] 10:00 AM EST Office Visit Dermatology at [address] [address] Sriram Paul MD 580 [facility], [place] [address] documented as of this encounter Visit Diagnoses Not on filedocumented in this encounter Care Teams Coke Still Cleaner Relationship Specialty Start Date End Date Vicente Lozano DO [facility] [place] [address] PCP - General Family Medicine 08/14/19 documented as of this encounter
--- OUTSIDE RECORDS SUMMARY | 2024-05-18 19:10 | XMS_ITS | Encounter Summary ---
[place] [address] Care Team Providers Care Registered Nurse Name Role Phone Vicente Mehta MD Primary Care Provider [phone] Reason for Visit * Reason Comments Skin Check Encounter Details Date Type Department Care Team (Late st Contact Info) Description 05/22/2016 9:45 AM EST Office Visit Dermatology at [address] [address] Sriram Paul MD 580 [facility], [facility] [place] [address] [place] (actinic keratosis); Other seborrheic keratosis; Inflamed acrochordon Social History Tobacco Use Types Packs/Day Years Used Date Smoking Tobacco: Never Sex and Gender Information Value Date Recorded Sex Assigned at Not on file Gender Identity Not on file Sexual Orientation Not on file documented as of this encounter Progress Notes * Sriram Paul MD - 05/22/2016 9:45 AM EST PROBLEM: Skin checkup. [place] follows up after last being seen in 07/2013. He is here for a 2 year check. He has noticed some new tags, that are often open and irritated. 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 Physical examination revealed a pleasant 70-year-old gentleman who has actinics present today on the dorsal hands. A total of 4 are noted. He has about 10 irritated acrochordons in the axillary vaults bilaterally. He has numerous seborrheic keratoses on the back and stucco keratoses on his ankles and legs. Fortunately, careful examination of the head and the neck, the chest, the back, hands and forearms, thighs and calves, is benign. A/P: 1. Actinic keratoses. a. LN2 x2 applied at each of 4 sites. b. Recommend I see him again in another 2 years for repeat check. Reminder of 2 years. 2. Seborrheic keratoses. a. Patient reassured. No treatment necessary. 3. Irritated or inflamed acrochordons/tags. a. These sites were anesthetized and then electrodesiccated and removed. CC: Vicente Mehta MD documented in this encounter Plan of Treatment Upcoming Encounters Date Type Department Care Team (Late st Contact Info) Description 06/20/2024 10:00 AM EST Office Visit Dermatology at [place] [address] [place] [address] Sriram Paul MD 580 [facility], COUNTS INCLUDE [address] [facility] [place] [address] documented as of this encounter Visit Diagnoses Diagnosis AK (actinic keratosis) Actinic keratosis Other seborrheic keratosis Inflamed acrochordon Unspecified hypertrophic and atrophic condition of skin documented in this encounter Care Teams Registered Nurse Relationship Specialty Start Date End Date Vicente Mehta MD [address] [facility] [place] [address] PCP - General 04/22/10 08/13/19 documented as of this encounter
--- OUTSIDE RECORDS SUMMARY | 2024-05-18 19:10 | XMS_ITS | Clinical Summary ---
Author Organization [facility] [place] [address] Care Team Providers Care Slip Feeder Name Role Phone Vicente Lozano DO Primary Care Provider [phone] Allergies No known active allergies Medications Medication Sig Dispensed Refills Start Date End Date Status lisinopril (PRINIVIL;ZESTRIL) 10 mg tablet 10MG, PO, Once daily 04/21/2005 Active nitroGLYcerin (NITROSTAT) 0.4 mg SL tablet 0.4MG, Sublingual, PRN 04/20/2005 Active aspirin 81 mg EC tablet Take 81 mg by mouth daily. Active multivitamin (THERAGRAN) tablet Take 1 tablet by mouth daily. Active metoprolol succinate XL (Toprol-XL) 25 mg Tablet Sustained Release 24 hr TAKE 1 TABLET BY MOUTH DAILY 07/18/2019 Active rosuvastatin (Crestor) 10 mg Tablet TAKE 1 TABLET BY MOUTH ONCE DAILY 2019 Active meclizine (Antivert) 12.5 mg Tablet TAKE 2 TABLETS BY MOUTH TWICE DAILY NEEDED FOR MOTION SICKNESS FOR VERTIGO 05/10/2020 Active fexofenadine (Viry) 60 mg Tablet Take 60 mg by mouth daily. 03/19/2021 Active fluorometholone (FML) 0.1 % Drops, Suspension SHAKE LIQUID AND INSTILL 1 DROP IN LEFT EYE TWICE DAILY 08/23/2023 Active Active Problems Problem Noted Date Diagnosed Date Inflamed acrochordon 05/22/2016 [place] (actinic keratosis) 07/31/2013 Other seborrheic keratosis 07/31/2013 Actinic keratosis 05/06/2012 Social History Tobacco Use Types Packs/Day Years Used Date Smoking Tobacco: Never Smokeless Tobacco: Never Sex and Gender Information Value Date Recorded Sex Assigned at Not on file Gender Identity Not on file Sexual Orientation Not on file Plan of Treatment Upcoming Encounters Date Type Department Care Team (Late st Contact Info) Description 06/20/2024 10:00 AM EST Office Visit Dermatology at [place] 580 [facility] [place] [address] Sriram Paul MD [address] [address], [facility] [place] [address] Health Maintenance Due Date Last Done Comments Hepatitis C Screening 1963 Tetanus/Diphtheria/Pertussis Vaccines (1 - Tdap) 08/01 Pneumoccocal Vaccine: 65+ (1 of 1 - PCV) 1996 Zoster vaccine (1 of 2) 1996 Advance Directive 2001 RSV Vaccine (1 - 1-dose 75+ series) 2021 Covid-19 Vaccine (1 - 2023-25 season) 2024 Influenza (Flu) vaccine (1 o f 1 - Influenza standard series) 01/30/2024 Care Teams Slip Feeder Relationship Specialty Start Date End Date Vicente Lozano DO [address] [place] [address] PCP - General Family Medicine 08/14/19
--- OUTSIDE RECORDS SUMMARY | 2024-05-18 19:10 | XMS_ITS | Encounter Summary ---
[place] [address] Care Team Providers Care Evaluation Advisor Name Role Phone Vicente Lozano DO Primary Care Provider [phone] Encounter Details Date Type Department Care Team (Late st Contact Info) Description 08/15/2020 8:45 AM EDT Office Visit Dermatology at [place] 580 [facility] [place] [address] Sriram Paul MD 580 [facility], [facility] [place], [place] [id number] [place] (actinic keratosis) Social History Tobacco Use Types Packs/Day Years Used Date Smoking Tobacco: Never Smokeless Tobacco: Never Sex and Gender Information Value Date Recorded Sex Assigned at Not on file Gender Identity Not on file Sexual Orientation Not on file documented as of this encounter Progress Notes * Sriram Paul MD - 08/15/2020 8:45 AM EDT Problem: 1. Repeat skin checkup 2. History of actinic damage 3. 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 [place] follows up for yearly check. He is desirous of yearly checks. He is not some new lesionson his skin. Physical examination reveals a pleasant 75-year-old man who has stucco keratosis about his ankles. He has a seborrheic keratosis on his back on his left upper chest. He has actinic's on the temples the cheeks and on dorsal hands a total of 8 are noted. Otherwise careful examination of the head and the neck the chest and the back the hands the arms forearms thighs and the calves is benign. Assessment plan: Actinic keratosis 1. LN2 times 2 applied to each each of 8 sites 2. Continue sun avoidance precautions 3. Clinic in another year for repeat check Seborrheic keratoses, back. 1. Patient reassured about his benign seborrheic keratosis. 2. No treatment necessary. CC: Vicente Lozano DO documented in this encounter Plan of Treatment Upcoming Encounters Date Type Department Care Team (Late st Contact Info) Description 06/20/2024 10:00 AM EST Office Visit Dermatology at [place] [address] [place] [address] Sriram Paul MD 580 [facility], [facility] [place] [address] documented as of this encounter Visit Diagnoses Diagnosis AK (actinic keratosis) Actinic keratosis documented in this encounter Care Teams Evaluation Advisor Relationship Specialty Start Date End Date Vicente Lozano DO [address] [place] [address] PCP - General Family Medicine 08/14/19 documented as of this encounter
--- OUTSIDE RECORDS SUMMARY | 2024-05-18 19:10 | XMS_ITS | Encounter Summary ---
[place] [address] Care Team Providers Care Health Assistant Name Role Phone Vicente Lozano DO Primary Care Provider [phone] Reason for Visit * Reason Comments Skin Lesion Encounter Details Date Type Department Care Team (Late st Contact Info) Description 02/19/2023 8:30 AM EDT Office Visit Dermatology at [address] [address] Sriram Paul MD 580 [facility], [facility] [place] [address] History of SCC (squamous cell carcinoma) of skin; Seborrheic keratosis Social History Tobacco Use Types Packs/Day Years Used Date Smoking Tobacco: Never Smokeless Tobacco: Never Sex and Gender Information Value Date Recorded Sex Assigned at Not on file Gender Identity Not on file Sexual Orientation Not on file documented as of this encounter Progress Notes * Sriram Paul MD - 02/19/2023 8:30 AM EDT Problem: 1. Changing lesion on the leg 2. History of actinic damage 3. History of growing up on a farm 4. 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 5. 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 Patient desirous of every 6 month follow-ups [place] follows up after last being seen in November. He is concerned about a changing spot on his leg. This has developed since I saw him last in November. Physical examination reveals a pleasant 77-year-old gentleman has a triangular- shaped erythematous patch on the left medial calf which measures about 2 cm on the side. It appears concerning for possible Cameron's disease versus superficial BCCA. Assessment plan: Rule out nonmelanoma cutaneous malignancy 1. Today site was anesthetized and shave biopsy obtained from the inferior section. 2. Submitted for pathologic analysis 3. Triple antibiotic ointment and bandage placed 4. If positive for tumor will recommend appropriate definitive therapy. CC: Vicente Lozano DO documented in this encounter Plan of Treatment Upcoming Encounters Date Type Department Care Team (Late st Contact Info) Description 06/20/2024 10:00 AM EST Office Visit Dermatology at [place] [address] [place] [address] Sriram Paul MD 580 [facility], [facility] [place] [address] documented as of this encounter Visit Diagnoses Diagnosis History of SCC (squamous cell carcinoma) of skin Personal history of other malignant neoplasm of skin Seborrheic keratosis Other seborrheic keratosis documented in this encounter Care Teams Health Assistant Relationship Specialty Start Date End Date Vicente Lozano DO [address] [place] [address] PCP - General Family Medicine 08/14/19 documented as of this encounter
--- OUTSIDE RECORDS SUMMARY | 2024-05-18 19:10 | XMS_ITS | Encounter Summary ---
Author Organization [facility] [place] [address] Care Team Providers Care Housekeeper Caregiver Name Role Phone Vicente Mehta MD Primary Care Provider [phone] Reason for Visit * Reason Comments Annual Exam Encounter Details Date Type Department Care Team (Late st Contact Info) Description 05/06/2012 8:45 AM EST Office Visit Dermatology [address] [facility] [address] [place], [place] [id number] Sriram Paul MD [address] [facility], [facility]Y [place], [place] [id number] Actinic keratosis (Primary Dx) Social History Tobacco Use Types Packs/Day Years Used Date Smoking Tobacco: Never Sex and Gender Information Value Date Recorded Sex Assigned at Not on file Gender Identity Not on file Sexual Orientation Not on file documented as of this encounter Progress Notes * Sriram Paul MD - 05/06/2012 9:05 AM EST Problem: Yearly skin checkup. [place] follows up after last being seen in April of 2011. He has been doing well. 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 He has noticed a couple new sites of concern. Physical examination reveals actinics present on the left and right methodist, also on the lateral cheeks and on the left mid helical rim. Six are noted today. Otherwise, careful examination of the head and the neck, the chest, the back, hands, arms, forearms, thighs, and calves is benign. He has a number of seborrheic keratoses on his back and on the anterior base of his neck. Assessment and Plan: Actinic keratoses. a. LN2 times two applied to each of six sites. b. Recommend that we continue yearly skin checkups. c. Return to clinic in one year. d. Reinforced sun avoidance precautions, which the patient is following. Copy: Vicente Mehta M.D. documented in this encounter Miscellaneous Notes * Miscellaneous - Provider, Scanning - 05/06/2012 9:11 AM EST documented in this encounter Plan of Treatment Upcoming Encounters Date Type Department Care Team (Late st Contact Info) Description 06/20/2024 10:00 AM EST Office Visit Dermatology at [place] [address] [place] [address] Sriram Paul MD [address], [place] [address] documented as of this encounter Visit Diagnoses Diagnosis Actinic keratosis- Primary documented in this encounter Care Teams Housekeeper Caregiver Relationship Specialty Start Date End Date Vicente Mehta MD [address] [place] [address] PCP - General 04/22/10 08/13/19 documented as of this encounter
--- OUTSIDE RECORDS SUMMARY | 2024-05-18 19:10 | XMS_ITS | Encounter Summary ---
Author Organization [facility] Address [address] [place] [address] Care Team Providers Care Potato Chip Fryer Name Role Phone Vicente Mehta MD Primary Care Provider Unav ailable Encounter Details Date Type Department Care Team (Late st Contact Info) Description 03/20/2021 Lab Requisition [facility] Pathology & Laboratory Medicine - [facility] [address], [place] [address] Outr Resulting Lab, Provider Social History Tobacco [...] Procedure Name Priority Date/Time Associated Diagnosis Comments ZZCOVID-19 TEST [facility] PCR Today 03/19/2021 10:20 EDT COVID-19 TESTING Routine 03/19/2021 10:2 0 EDT documented in this encounter Results * COVID-19 TEST [facility] PCR (03/19/2021 10:20 EDT) Swab ENTIRE NASOPHARYNX / Unknown 03/19/2021 10:20 EDT 03/20/2021 16:15 EDT us Provider Outr Resulting Lab MICROBIOLOGY - GENER AL ORDERABLES Final Result [facility] [address] [place] [address] * COVID-19 TESTING (03/19/2021 10:20 EDT) COVID-19 rt-PCR Result Negative Negative 03/21/2021 14:44 EDT [facility] Comment: This test has not been FDA cleared or approved. This test has been authorized by FDA under an EUA for use by authorized laboratories. This test has been authorized only for detection of nucleic acid from 2019-nCoV, not for any other viruses or pathogens. This test is only authorized for the duration of the declaration that circumstances exist justifying the authorization of emergency use of in vitro diagnostic tests for detection and/or diagnosis of 2019-nCoV under section 564(b)(1) of Act, 21 U.S.C ?? 360bbb-3(b) (1), unless the authorization is terminated or revoked sooner. Negative results do not preclude 2019-nCoV infection and should not be used as the sole basis for treatment or other patient management decisions. Negative results must be combined with clinical observations, patient history, and epidemiological information. This test was developed and its performance characteristics determined by [facility]. It has not been cleared or approved by the US Food and Drug Administration. FDA does not require this test to go through premarket FDA review. This test is used for clinical purposes. It should not be regarded as investigational or for research. This laboratory is certified under the Clinical Laboratory Improvement Amendments (CLIA) as qualified to perform high complexity clinical laboratory testing. This test is based on the [facility] COVID-19 Emergency Use Authorization (EUA) assay, with minor modification as defined by the FDA Performed on the LendPro[employer] 7 Pro RT-PCR System. Performing Lab [facility] 03/21/2021 14:44 EDT [facility] Swab 03/19/2021 10:2 0 EDT 03/20/2021 16:15 EDT us Provider Outr Resulting Lab MICROBIOLOGY - GENER AL ORDERABLES Final Result [facility] [address] [place] [address] documented in this encounter Visit Diagnoses Not on filedocumented in this encounter Care Teams Potato Chip Fryer Relationship Specialty Start Date End Date Vicente Mehta MD PCP - General 11/29/09 documented as of this encounter
--- OUTSIDE RECORDS SUMMARY | 2024-05-18 19:10 | XMS_ITS | Encounter Summary ---
[place] [address] Care Team Providers Care Senior Electrical Estimator Name Role Phone Vicente Lozano DO Primary Care Provider [phone] Encounter Details Date Type Department Care Team (Latest Contact Info) Description 02/19/2023 10:25 PM EDT - 02/19/2023 11:59 PM EDT [place] [id number] Discharge Disposition: Home Social History Tobacco Use Types Packs/Day Years Used Date Smoking Tobacco: Never Smokeless Tobacco: Never Sex and Gender Information Value Date Recorded Sex Assigned at Not on file Gender Identity Not on file Sexual Orientation Not on file documented as of this encounter Medications at Time of Discharge Medication Sig Dispensed Refills Start Date End Date fexofenadine (Viry) 60 mg Tablet Take 60 [...] mg SL tablet 0.4MG, Sublingual, PRN 04/20/2005 finasteride (Proscar) 5 mg tablet Take 5 mg by mouth daily. 08/27/2022 12/17/2023 fluorometholone (FML) 0.1 % Drops, Suspension SHAKE LIQUID AND INSTILL 1 DROP IN LEFT EYE TWICE DAILY 11/09/2022 06/18/2023 documented as of this encounter Plan of Treatment Upcoming Encounters Date Type Department Care Team (Late st Contact Info) Description 06/20/2024 10:00 AM EST Office Visit Dermatology at [place] [address] [place] [address] Sriram Paul MD [address], [facility] A DERMATOLOGY [place], [place] [phone] documented as of this encounter Procedures Procedure Name Priority Date/Time Associated Diagnosis Comments SURGICAL PATHOLOGY REPORT Routine 02/19/2023 8:50 AM EDT documented in this encounter Results * Surgical Pathology Report (02/19/2023 8:50 AM EDT) Final Diagnosis [id number] ? Location: [facility] The signing pathologist has (i) examined the relevant preparation(s) for the specimen(s) and (ii) rendered or confirmed the diagnosis(es). . ?Surgical Pathology DIAGNOSIS Left medial calf, skin shave biopsy: - Acanthosis, spongiosis, mild basal layer atypia ?? (see Discussion) Electronically signed by: ?Paras VIDAL, PhD, Karla Verified: ??03/03/2023 15:58 ??Dermatopatholog ist Performed at: ??-[facility] Dept. of [place]ology, [place] [id number] Enrollment Services Dean: Salbador Calvert MD, FCAP, ??CLIA Certificate: [id number] DISCUSSION The biopsy also shows ?? hyperkeratosis, parakeratosis containing inflamed serum crust, ??mild superficial perivascular lymphocytic infiltrate mixed with eosinophils. The granular cell layer is preserved. Overall this biopsy shows changes of spongiotic/eczema tous dermatitis with overlapping features of mild actinic keratosis. No fungi are seen in PAS-reacted sections. Carcinoma is not seen. Clinicopathologic correlation is recommended. ADDITIONAL STUDIES Special stains are performed. ?? Block ? Stain ?Result ( Positive / Negative ) ??A2 ?PAS/F ? 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 Quantity/Size: ??Single, 1.5 x 1.0 x 0.1 cm. Tissue Description: Shave of a potter-pink skin plaque. Sections/Processi ng: Inked, serially sectioned and entirely submitted in 2 cassettes as follows: ?A1: ??Tips ?A2: ??Body ??sns 03/03/2023 3:58 PM EDT [facility] SPECIMEN FROM SKIN / Unknown 02/19/2023 8:50 AM EDT 02/19/2023 8:50 AM EDT Sriram Paul MD PATHOLOGY/CYTOLOGY [facility] [place] [address] [facility] [place] [address] documented in this encounter Visit Diagnoses Not on filedocumented in this encounter Care Teams Senior Electrical Estimator Relationship Specialty Start Date End Date Vicente Lozano DO [address] [place] [address] PCP - General Family Medicine 08/14/19 documented as of this encounter
--- OUTSIDE RECORDS SUMMARY | 2024-05-18 19:10 | XMS_ITS | Encounter Summary ---
[place] [address] Care Team Providers Care Underwater Roboticist Name Role Phone Vicente Lozano DO Primary Care Provider [phone] Encounter Details Date Type Department Care Team (Latest Contact Info) Description 12/15/2021 10:05 PM EDT - 12/15/2021 11:59 PM EDT Hospital [place] [phone] Discharge Disposition: Home Social History Tobacco Use [...] mg SL tablet 0.4MG, Sublingual, PRN 04/20/2005 bddmagpu-gcyrsrjhs-yyt amethasone (Dexacine) 3.5 mg/g-10,000 unit/g-0.1 % Ointment APPLY SMALL AMOUNT IN BOTH EYES TWICE DAILY 08/15/2021 02/19/2023 bisacodyl EC (Dulcolax) 5 mg Tablet, Delayed Release (E.C.) TAKE DIRECTED FOR COLONOSCOPY 08/02/2020 06/19/2022 polyethylene glycoL (Miralax) 17 gram/dose Powder TAKE DIRECTED FOR COLONOSCOPY 08/02/2020 06/19/2022 documented as of this encounter Plan of Treatment Upcoming Encounters Date Type Department Care Team (Late st Contact Info) Description 06/20/2024 10:00 AM EST Office Visit Dermatology at [place] [address] [facility] [place] [address] Sriram Paul MD [address] [facility], [place] [address] documented as of this encounter Procedures Procedure Name Priority Date/Time Associated Diagnosis Comments SURGICAL PATHOLOGY REPORT Routine 12/15/2021 2:40 PM EDT documented in this encounter Results * Surgical Pathology Report (12/15/2021 2:40 PM EDT) Final Diagnosis [id number] ? Location: [facility] The signing pathologist has (i) examined the relevant preparation(s) for the specimen(s) and (ii) rendered or confirmed the diagnosis(es). . ?Surgical Pathology DIAGNOSIS Right dorsal forearm, skin shave biopsy: - ??Invasive squamous cell carcinoma, moderately differentiated, ?present at the deep specimen edge Electronically signed by: ?Roslyn Pritchett MD Verified: ??12/18/2021 12:33 ??Dermatopathol ogist Performed at: ??-[facility] [place]. [place], [place], [place] SPECIMEN(S) SUBMITTED A - R dorsal forearm, skin shave biopsy CLINICAL INFORMATION BCCA/SCCA, treated with shave c&d SPECIMEN PROCESSING A - Labeled/Fixativ e: Patient demographics, formalin. Quantity/Size: ??Single, 1.5 x 1.3 x 0.4 cm. Tissue Description: Shave of potter-white skin with a central 0.8 x 0.6 cm feliciano-brown firm papule. Sections/Proces sing: Entirely submitted in 3 cassettes as follows: ?A1: ??Tips ?A2-A3: ??Body ??nrl 12/18/2021 12:33 PM EDT [facility] SPECIMEN FROM SKIN / Unknown 12/15/2021 2:40 PM EDT 12/15/2021 2:40 PM EDT Sriram Paul MD PATHOLOGY/CYTOLOGY O RDERABLES [facility] [place] [address] documented in this encounter Visit Diagnoses Not on filedocumented in this encounter Care Teams Underwater Roboticist Relationship Specialty Start Date End Date Vicente Lozano DO [address] [place] [address] PCP - General Family Medicine 08/14/19 documented as of this encounter
--- OUTSIDE RECORDS SUMMARY | 2024-05-18 19:10 | XMS_ITS | Encounter Summary ---
Author Organization [facility] Address [address] [place] [address] Care Team Providers Care Record Label Intern Name Role Phone Unavailable Primary Care Provider Unavailabl e Encounter Details Date Type Department Care Team (Late st Contact Info) Description 11/27/2009 Results Only [facility] Services - [facility] ([facility] [address] [place], [place] [address] Kd Cee MD [address] [place] [address] Social History Tobacco Use Types [...] Date/Time Associated Diagnosis Comments SURGICAL PATHOLOGY Routine 11/27/2009 0:00 EDT documented in this encounter Results * SURGICAL PATHOLOGY (11/27/2009 0:00 EDT) Pathology Report: SURGICAL PATHOLOGY REPORT ? Reports generated via electronic interface contain original data; ? however they are lacking the format of the original report. ? Caution should be taken when reading/interpreti ng unformatted reports. ? Name: ? DEAN, BECCA ? Accession #: ? [id number] ? : ? 1945 (Age: 64) ??M ? Collect Date: ? 11/27/2009 ? Location: ? [facility] ? Receive Date: ? 11/27/2009 ? Provider: KD CEE MD ? Copy to: MARTINEZ AGUIAR MD ? Final Pathologic Diagnosis: ? Colon, sigmoid, polyps, biopsies: ? 1. ?Hyperplastic polyp. ? 2. ? Lymphoid aggregate. ??See comment. ? Comment: ? Deeper levels were examined. ??(Dr. Weber)/ljn ? Document reviewed and electronically signed by: ? Aleksey De Los Santos MD ? Report ??Date: 12/03/2009 17:07 ? By the signature above, the attending physician certifies that he/she has ? personally conducted a gross and/or microscopic examination of the described ? specimens and rendered or confirmed the above diagnosis. ? Specimen(s) Received: ? Sigmoid polyps x2 ? Clinical History: ? H/O colon adenomas ? Gross Description: ? Received in [facility]'s fixative labelled [place], Becca and 1 ??sigmoid ? polyps x2 are two sessile polyps measuring 0.4 x 0.3 x 0.3 cm and 0.3 x 0.3 x ?? 0.3 cm. ??One of the polyp margins is black inked, while the other margin of the polyp is not discernible. ??The specimens are submitted intact in one cassette. ?? (Dr. Driscoll)/kim ? End of Report ? [facility] 11/27/2009 11/27/2009 8:1 7 EDT us Kd Cee MD PATHOLOGY ORDERABLES Final Resul t [facility] [address] [place] [address] documented in this encounter Visit Diagnoses Not on filedocumented in this encounter
--- OUTSIDE RECORDS SUMMARY | 2024-05-18 19:10 | XMS_ITS | Encounter Summary ---
[place] [address] Care Team Providers Care Manager Of Financial Name Role Phone Vicente Lozano DO Primary Care Provider [phone] Reason for Visit * Reason Comments Annual Exam Encounter Details Date Type Department Care Team (Late st Contact Info) Description 08/29/2021 9:15 AM EDT Office Visit Dermatology at [address] [address] Sriram Paul MD [address] [facility] [place] [address] [place] (actinic keratosis); Seborrheic keratosis; Seborrheic keratosis, inflamed Social History Tobacco Use Types Packs/Day Years Used Date Smoking Tobacco: Never Smokeless Tobacco: Never Sex and Gender Information Value Date Recorded Sex Assigned at Not on file Gender Identity Not on file Sexual Orientation Not on file documented as of this encounter Progress Notes * Sriram Paul MD - 08/29/2021 9:15 AM EDT Problem: 1. ??Repeat skin checkup 2. ??History of actinic damage 3. 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 [place] follows up for yearly check. He is desirous of yearly checks. He is not some new lesions on his skin. [place] follows up for his yearly skin checkup. He has been doing well. He has noticed a new lesion onthe right lateral forehead. Physical examination reveals a pleasant fair skinned 76-year-old gentleman who has a an irritated seborrheic keratosis partially desquamated on his right lateral forehead. He has otherwise benign examination of the head and the neck the chest the back the hands arms forearms thighs and calves and the buttocks. He has number of seborrheic keratoses on his back. Assessment plan: Irritated seborrheic keratosis right lateral forehead 1. After obtaining informed consent site was anesthetized and removed with shave biopsy 2. Triple antibiotic ointment and Band-Aid placed 3. Wound care instructions and supplies given 4. Return to clinic here in a year for repeat check History of actinic keratoses 1. Continue to monitor Seborrheic keratoses back 1. Patient reassured CC: Vicente Lozano DO documented in this encounter Plan of Treatment Upcoming Encounters Date Type Department Care Team (Late st Contact Info) Description 06/20/2024 10:00 AM EST Office Visit Dermatology at [place] [address] [place] [address] Sriram Paul MD [address] [facility], [facility] [place] [address] documented as of this encounter Visit Diagnoses Diagnosis [place] (actinic keratosis) Actinic keratosis Seborrheic keratosis Other seborrheic keratosis Seborrheic keratosis, inflamed Inflamed seborrheic keratosis documented in this encounter Care Teams Manager Of Financial Relationship Specialty Start Date End Date Vicente Lozano DO [address] [place] [address] PCP - General Family Medicine 08/14/19 documented as of this encounter
--- OUTSIDE RECORDS SUMMARY | 2024-05-18 19:10 | XMS_ITS | Clinical Summary ---
Author Organization [facility] Address [address] [place] [address] Care Team Providers Care Bobbin Drier Name Role Phone Vicente Mehta MD Primary Care Provider Unav ailable Social History Tobacco Use Types Packs/Day Years Used Date Smoking Tobacco: Never Assessed Sex and Gender Information Value Date Recorded Sex Assigned at Not on file Legal Sex Male 18:35 EST Gender Identity Not on file Sexual Orientation Not on file Plan of Treatment Health Maintenance Due Date Last Done Comments Fall Risk Screening 08/02/2011 RSV Immunization ( o r 60+ Years) (1 - 1-dose 75+ series) 2021 COVID-19 Vaccine ( season) 2024 Hepatitis C Screen Completed 08/18/2021 Procedures Procedure Name Priority Date/Time Associated Diagnosis Comments HEPATITIS C AB W REFLEX TO HCV RNA BY PCR Routine 08/18/2021 7:50 EDT from Last 3 Months or Most Recently Relevant to Health Maintenance Results * HEPATITIS C AB W REFLEX TO HCV RNA BY PCR (08/18/2021 7:50 EDT) Hep C Antibody Negative Negative 08/19/2021 10:24 EDT [facility] Blood VENOUS BLOOD / Unknown 08/18/2021 7:50 EDT 08/18/2021 16:59 EDT us Provider Outr Resulting Lab CHEMISTRY & BLOOD GA S ORDERABLES Final Result [facility] [address] [place] [address] from Last 3 Months or Most Recently Relevant to Health Maintenance Insurance [facility] MEDICARE [place]CO [place] Care Teams Bobbin Drier Relationship Specialty Start Date End Date Vicente Mehta MD PCP - General 11/29/09
--- OUTSIDE RECORDS SUMMARY | 2024-05-18 19:10 | XMS_ITS | Encounter Summary ---
[place] [address] Care Team Providers Care Resolution Agent Name Role Phone Vicente Mehta MD Primary Care Provider [phone] Reason for Visit * Reason Comments Actinic Keratosis Encounter Details Date Type Department Care Team (Late st Contact Info) Description 05/19/2011 9:15 AM EST Office Visit Dermatology [address] [place] [address] [address] [place], [place] [address] Sriram Paul MD [address], [place] [address] Actinic keratosis (Primary Dx); Seborrheic keratosis Social History Tobacco Use Types Packs/Day Years Used Date Smoking Tobacco: Never Sex and Gender Information Value Date Recorded Sex Assigned at Not on file Gender Identity Not on file Sexual Orientation Not on file documented as of this encounter Progress Notes * Sriram Paul MD - 05/19/2011 9:51 AM EST Problem: Actinic keratosis. [place] follows up after last being seen in August of 2009, referred back by Dr. Mehta for some new lesions of concern. 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 Physical examination reveals 2 actinic on the right faith, and below them, 2 seborrheic keratoses.Otherwise, his examination of the head and neck, chest, back, ahead and forearms is benign. Assessment and plan: Actinic keratoses. 2. Facial sites, right faith. A: LN 2 times to the sites. Seborrheic keratoses. A. LN 2x2 applied to sites. B. Return to clinic in one year for repeat check. CC: Vicente Meza M.D. documented in this encounter Plan of Treatment Upcoming Encounters Date Type Department Care Team (Late st Contact Info) Description 06/20/2024 10:00 AM EST Office Visit Dermatology at [place] [address] [place] [address] Sriram Paul MD [address], [place] [address] documented as of this encounter Visit Diagnoses Diagnosis Actinic keratosis- Primary Seborrheic keratosis Other seborrheic keratosis documented in this encounter Care Teams Resolution Agent Relationship Specialty Start Date End Date Vicente Mehta MD [address] [place] [address] PCP - General 04/22/10 08/13/19 documented as of this encounter
[2024-05-18] MEDS: ACETAMINOPHEN 650 MG/65 ML BAG 260 MG IVPB (19:12)
[2024-05-18 19:25] LABS: Abs Immature Grans 0.04 10^3/uL (0.0-0.06); Absolute Basophil Count 0.04 10^3/uL (0.0-0.2); Absolute Eosinophil Count 0.13 10^3/uL (0.0-0.7); Absolute Lymphocyte Count 1.59 10^3/uL (1.2-3.4); Absolute Monocyte Count 0.67 10^3/uL (0.1-0.8); Absolute Neutrophil Count 4.99 10^3/uL (1.2-6.7); Basophils % 0.5 %; Eosinophils % 1.7 %; HCT 45.4 % (40.0-50.0); HGB 15.6 g/dL (13.5-17.5); Immature Grans % 0.5 %; Lymphocytes % 21.3 %; MCH 30.9 pg (27.0-33.0); MCHC 34.4 % (32.0-36.0); MCV 90 fL (80-95); MPV 11.6 fL (8.0-11.0); Platelet Count 121 10^3/uL (130-400); RBC 5.05 10^6/uL (4.36-5.78); RDW 11.9 % (11.8-14.1); RDW-SD 39.1 fL; WBC 7.46 10^3/uL (4.4-10.8)
[2024-05-18 19:35] LABS: ALT 44 U/L (16-63); AST 29 U/L (15-37); Albumin 4.2 g/dL (3.4-5.0); Alkaline Phosphatase 72 U/L (46-116); Anion Gap 4.9 mmol/L (3-11); BUN 27 mg/dL (7-18); Bilirubin, Total 0.57 mg/dL (0.2-1.0); CO2 30.1 mmol/L (21.0-32.0); CREATININE 1.1 mg/dL (0.70-1.30); Chloride 106 mmol/L (98-107); Estimated GFR 69.14 (mL/min/1.73m2); Glucose 130 mg/dL (74-106); Lipase 34 U/L (<78); Potassium 3.8 mmol/L (3.5-5.1); Sodium 141 mmol/L (136-145); Total Protein 7.5 g/dL (6.4-8.2)
[2024-05-18] MEDS: Normal Saline - Diluent 50 ML VIAL IJ (19:39)
[2024-05-18 19:42] LABS: Calcium 9.1 mg/dL (8.5-10.1)
[2024-05-18] MEDS: Omnipaque 350 MG/ML 100 ML BTL IJ (19:43)
[2024-05-18 20:19] LABS: Bilirubin Negative (Negative); Blood Small (Negative); Clarity Clear (Clear); Glucose Negative (Negative); Ketones Negative (Negative); Leukocyte Esterase Negative (Negative); Nitrite Negative (Negative); Urobilinogen 0.2 mg/dL (Up to 0.2); pH 5.5 (5-8)
[2024-05-18 20:28] LABS: Bacteria Rare HPF (Negative); C & S Indicated? No; Casts Negative LPF (Negative); Crystals Negative HPF (Negative); Epithelial Cells Rare HPF (Negative); Mucus Negative (Negative); Other Cells Negative (Negative); RBC 0-2 HPF (0-2); WBC 0-2 HPF (0-5)
[2024-05-18] MEDS: Lidocaine 5% Patch 1 PATCH TP (20:47)
--- NOTE | 2024-05-18 21:05 | DI.VRAD_ITS ---
PROCEDURE INFORMATION: Exam: CT Chest With Contrast; Diagnostic Exam date and time: 05/18/2024 7:41 PM Age: 78 years old Clinical indication: Injury or trauma; Generalized; Blunt trauma (contusions or hematomas); Injury details: Fall, R flank pain TECHNIQUE: Imaging protocol: Diagnostic computed tomography of the chest with contrast. 3D rendering (Not supervised by radiologist): MIP and/or 3D reconstructed images were created by the technologist. Contrast material: OMNI 350; Contrast volume: 100 ml; Contrast route: INTRAVENOUS (IV); COMPARISON: CT CERVICAL SPINE WO 05/18/2024 7:38 PM FINDINGS: Lungs: Minimal ground-glass change noted right lung base. Pleural spaces: Unremarkable. No pneumothorax. No pleural effusion. Heart: Unremarkable. No cardiomegaly. No pericardial effusion. Coronary arteries: Coronary artery calcifications/dense noted. Lymph nodes: Unremarkable. No enlarged lymph nodes. Vasculature: Unremarkable. No aortic aneurysm. Bones/joints: Unremarkable. No acute fracture. Soft tissues: Unremarkable. IMPRESSION: No evidence for acute posttraumatic abnormality. PROCEDURE INFORMATION: Exam: CT Abdomen And Pelvis With Contrast Exam date and time: 05/18/2024 7:41 PM Age: 78 years old Clinical indication: Injury or trauma; Generalized; Blunt trauma (contusions or hematomas); Injury details: Fall, R flank pain TECHNIQUE: Imaging protocol: Computed tomography of the abdomen and pelvis with contrast. 3D rendering (Not supervised by radiologist): MIP and/or 3D reconstructed images were created by the technologist. Contrast material: OMNI 350; Contrast volume: 100 ml; Contrast route: INTRAVENOUS (IV); COMPARISON: No relevant prior studies available. FINDINGS: Liver: Fatty, enlarged liver. Low-density hepatic dome lesion, presumed cyst. Gallbladder and biliary ducts: Gallstones. Pancreas: Normal. No ductal dilation. Spleen: Normal. No splenomegaly. Adrenal glands: Normal. No mass. Kidneys and ureters: Bilateral renal cysts, large on the left. Renal perfusion is symmetric without hydronephrosis or hydroureter. Stomach and bowel: Unremarkable. No obstruction. No mucosal thickening. Appendix: No evidence of appendicitis. Intraperitoneal space: Unremarkable. No free air. No significant fluid collection. Vasculature: Unremarkable. No abdominal aortic aneurysm. Lymph nodes: Unremarkable. No enlarged lymph nodes. Urinary bladder: Unremarkable as visualized. Reproductive: The prostate is enlarged, 5.6 cm. Bones/joints: Unremarkable. No acute fracture. Soft tissues: Unremarkable. IMPRESSION: No evidence for acute posttraumatic abnormality. Dictated and Authenticated by: Annika Orona MD. Ordering:JESSICA Mustafa MD
--- NOTE | 2024-05-18 21:12 | DI.VRAD_ITS ---
PROCEDURE INFORMATION: Exam: CT Cervical Spine Without Contrast Exam date and time: 05/18/2024 7:38 PM Age: 78 years old Clinical indication: Pain and injury or trauma; Blunt trauma; Injury details: Neck pain, fall TECHNIQUE: Imaging protocol: Computed tomography of the cervical spine without contrast. COMPARISON: US CAROTID ULTRASOUND 09/01/2017 3:05 PM FINDINGS: Bones: There is reversal of the normal cervical lordosis, nonspecific but commonly seen with underlying muscle spasm. There is multilevel spondylosis with some degree calcification of the anterior and posterior spinal longitudinal ligaments, DISH. There is mid and lower cervical stenosis. Vertebral body height is well preserved. No acute fracture. Lungs: Lung apices are normal. Soft tissues: See Bones finding. IMPRESSION: Spondylosis with stenosis as noted above. No evidence for fracture. Dictated and Authenticated by: Annika Orona MD. Ordering:JESSIAC Mustafa MD
== END 2024-05-18 20:52 | disposition home or self-care (01) ==
PROVIDERS: Emergency Provider Physician Assistant; PCP Family Medicine
DX: S32.018A Other fracture of first lumbar vertebra, initial encounter for closed fracture (principal); E11.9 Type 2 diabetes mellitus without complications; I25.10 Atherosclerotic heart disease of native coronary artery without angina pectoris; Z79.82 Long term (current) use of aspirin; Z95.5 Presence of coronary angioplasty implant and graft; Z87.891 Personal history of nicotine dependence; W10.8XXA Fall (on) (from) other stairs and steps, initial encounter; Y93.01 Activity, walking, marching and hiking
CPT/HCPCS: 74177; 80053; 83690; 96365; 99285; 71260; 72125; 81003; 81015; 85025; J0131; J3490

== ENCOUNTER 2024-10-16 09:19 | Outpatient (CLI) | payer MEDICARE, BC, SELFPAY ==
[2024-10-16 08:51] LABS: Anion Gap 6.7 mmol/L (3-11); BUN 23 mg/dL (7-18); CO2 30.3 mmol/L (21.0-32.0); Calcium 9.4 mg/dL (8.5-10.1); Chloride 104 mmol/L (98-107); Estimated GFR 77.04 (mL/min/1.73m2); Glucose 135 mg/dL (74-106); Potassium 4.3 mmol/L (3.5-5.1); Sodium 141 mmol/L (136-145)
[2024-10-16 09:05] LABS: Hemoglobin A1C 5.9 % (<5.7)
== END 2024-10-16 09:20 | disposition home or self-care (01) ==
LOC: LBO 09:20
PROVIDERS: PCP Family Medicine; Visit Provider Family Medicine
DX: E11.9 Type 2 diabetes mellitus without complications (principal)
CPT/HCPCS: 36415; 80048; 83036

== ENCOUNTER 2025-02-22 11:34 | Outpatient (CLI) | payer MEDICARE, BC, SELFPAY ==
--- NOTE | 2025-02-22 10:00 | DI.RAD_ITS ---
Exam(s) XR CERVICAL SPINE COMP 4-5V EXAM: XR CERVICAL SPINE COMP 4-5V CLINICAL HISTORY: neck pain, CERVICALGIA M54.2. TECHNIQUE: 2D digital imaging was performed. Five views were performed. COMPARISON: CT CT CERVICAL SPINE WO from 05/18/2024 FINDINGS: BONES: No fracture or destructive lesion. The vertebral body heights are normal. There are prominent endplate osteophytes projecting anteriorly from C4 through C7. There are facet degenerative changes throughout. There is neural foraminal narrowing which is most severe at C3-4 and C4-5 on the right. There are severe degenerative changes between the odontoid and the anterior arch of C1. DISKS: There is mild narrowing of the C4-5 disc. There is moderate to severe narrowing of the C5-6 and C6-7 disc spaces. ALIGNMENT: There is degenerative straightening of the normal cervical lordosis. SOFT TISSUE: Normal. The lung apices are clear. IMPRESSION: Advanced degenerative disc changes and facet degenerative changes. DATA REPOSITORY: RADIATION DOSE DELIVERED:
== END 2025-02-22 11:54 ==
PROVIDERS: PCP Family Medicine; Visit Provider Emergency Medicine
DX: M51.360 Other intervertebral disc degeneration, lumbar region with discogenic back pain only (principal)
CPT/HCPCS: 72050

== ENCOUNTER 2025-03-05 02:18 | Outpatient (CLI) | payer MEDICARE, BC, SELFPAY ==
--- NOTE | 2025-03-05 05:15 | ETT_ITS ---
APPROVED REPORT Exam: Exercise Treadmill Patient Location: Out-Patient Room/Bed: Stress Nurse: Shirin Celestin RN Ordering Provider:MARTINEZ ESPARZA, Contact Number: [phone] BMI: 29.42 Baseline Rhythm: Sinus Rhythm Comment: Occasional PAC's Indications: SOB, Medical History Medical History: DMT2, thrombocytopenia, HLD, CAD, HTN Cardiac Medications: Aspirin, lisinopril, metoprolol succinate, nitro, rosuvastatin Allergies: NKA Cardiac Risk Factors: Family hx, HTN, HLD, CVD, diabetes, former smoker Previous Cardiac Procedures: Stents 2004 Pretest Chest Pain Characteristics: None Exercise History: Physically active Physical Disabilities: None Lung Sounds: Clear to auscultation Heart Sounds: Regular Stress Test Details Test: Exercise stress testing was performed using a Ganga protocol. Rest Stress HR Resting HR Supine: 79 bpm Max Heart Rate (APMHR): 142 bpm Resting HR Standin bpm Target HR (85% APMHR): 121 bpm Max HR Achieved: 136 bpm % of APMHR: 96 Recovery HR: 85 bpm HR response to stress: Normal HR response to stress BP Resting BP Supine: 154/92 mmHg Resting BP Standin/90 mmHg Max BP: 184/70 mmHg Recovery BP: 142/90 mmHg BP response to stress: Normal blood pressure response to stress. ECG Resting ECG: Sinus Rhythm Ectopy: Occasional PAC's Stress ECG: Sinus Tachycardia ST Change: No significant ST segment changes noted Arrhythmia: Occasional PAC's, rare PVC's Recovery ECG: Sinus Rhythm Recovery ST Change: No significant ST segment changes noted Recovery Arrhythmia: Occasional PAC's, Clinical Reason for Termination: Fatigue Stress Symptoms: General Fatigue Exercise duration: 08 min56 sec Highest Stage Reached: Stage 3: 3.4 mph at 14% grade. Exercise capacity: 10.16 METs Angina Score: None Rate Pressure Product: 10124 Stress ECG Conclusion 1. Resting electrocardiogram was normal 2. Patient exercised on the Ganga protocol and completed workload of 10 METS 3. Normal heart rate and blood pressure response to exercise. The patient achieved 96% of maximal predicted heart rate for age 4. There was no electrocardiographic evidence of myocardial ischemia 5. There were no significant dysrhythmias Stress Test Summary STAGE Time (mins) Speed (mph) Grade (%) HR BP SpO2 SYMPTOMS METS Supine 79 154/92 96% Standing 81 156/90 1 3 1.7 10 108 160/84 94% 4.5 2 6 2.5 12 112 180/90 94% 7 3 9 3.4 14 136 10 1 min recovery 114 184/70 97% 3 min recovery 85 168/80 96% 6 min recovery 85 142/90 95% Patient met target HR. Requested to stop treadmill due to general fatigue. All symptoms resolved by test end. Patient left ambulatory in no appparent distress.
== END 2025-03-05 02:38 ==
LOC: DI 02:18
PROVIDERS: PCP Family Medicine; Visit Provider Internal Medicine Cardiovascular Disease
DX: R06.02 Shortness of breath (principal)
CPT/HCPCS: 93016; 93018; 93017